=== PATIENT | female | born 1995 | race Caucasian/White ===

== ENCOUNTER 2016-05-19 11:13 | Emergency (ER) | payer OTHER ==
[2016-05-19 11:23] VITALS: RESP 18
[2016-05-19] MEDS ORDERED: SODIUM CHLORIDE 0.9% 1,000 ML IV STA ×2 (11:34)
[2016-05-19] MEDS ORDERED: METOCLOPRAMIDE 5 MG/ML 2 ML VIAL IVP STA (11:34)
--- NOTE | 2016-05-19 11:37 | ED ---
General Adult HPI - General Chief complaint: Nausea/Vomiting/Diarrhea Stated complaint: 24 WEEKS , FLU LIKE SYMPTOMS, VOMITING Time Seen by Provider: 05/19/16 11:31 Source: patient, RN notes reviewed Mode of arrival: ambulatory Limitations: no limitations - History of Present Illness Initial comments: Patient 20-year-old female who is approximately 24 weeks , with chief complaint of nausea vomiting that began around 3 AM. Patient admits to several episodes of vomiting throughout the night. States she did not get much sleep. Denies any signs of blood in the emesis. Denies any abdominal pain. Denies any vaginal bleeding or discharge. Denies any other complaints associated symptoms. Patient denies any recent fever, chills, shortness of breath, chest pain, back pain, numbness or tingling, dysuria or hematuria, constipation or diarrhea, headaches or visual changes, or any other complaints. - Related Data Home Medications Medication Instructions Recorded Confirmed Acetaminophen Tab [Tylenol Tab] 500 - 1,000 mg PO BID PRN 03/14/16 05/19/16 Albuterol Inhaler [Ventolin Hfa 1 - 2 puff INHALATION RT-Q6H PRN 03/14/16 Inhaler] Pnv with Ca,No.72/Iron/FA 1 tab PO DAILY 03/14/16 05/19/16 [ Plus Tablet] Previous Rx's Medication Instructions Recorded Metoclopramide HCl [Reglan] 10 mg PO Q6HR PRN #5 day 05/19/16 Allergies Allergy/AdvReac Type Severity Reaction Status Date / Time No Known Allergies Allergy Verified 05/19/16 12:01 Review of Systems ROS Statement: Those systems with pertinent positive or pertinent negative responses have been documented in the HPI. ROS Other: All systems not noted in ROS Statement are negative. Past Medical History Past Medical History: Asthma History of Any Multi-Drug Resistant Organisms: None Reported Past Surgical History: No Surgical Hx Reported Past Psychological History: No Psychological Hx Reported Smoking Status: Current every day smoker Past Alcohol Use History: None Reported Past Drug Use History: None Reported General Exam - General Exam Comments Initial Comments: General: The patient is awake and alert, in no distress, and does not appear acutely ill. Eye: Pupils are equal, round and reactive to light, extra-ocular movements are intact. No nystagmus. There is normal conjunctiva bilaterally. No signs of icterus. Ears, nose, mouth and throat: There are moist mucous membranes and no oral lesions. Neck: The neck is supple, there is no tenderness or JVD. Cardiovascular: There is a regular rate and rhythm. No murmur, rub or gallop is appreciated. Respiratory: Lungs are clear to auscultation, respirations are non-labored, breath sounds are equal. No wheezes, stridor, rales, or rhonchi. Gastrointestinal: Soft, non-distended, non-tender abdomen without masses or organomegaly noted. There is no rebound or guarding present. No CVA tenderness. Bowel sounds are unremarkable. Musculoskeletal: Normal ROM, no tenderness. Strength 5/5. Sensation intact. Pulses equal bilaterally 2+. Neurological: A&O x 3. CN II-XII intact, There are no obvious motor or sensory deficits. Coordination appears grossly intact. Speech is normal. Skin: Skin is warm and dry and no rashes or lesions are noted. Psychiatric: Cooperative, appropriate mood & affect, normal judgment. Limitations: no limitations Course Vital Signs 05/19/16 11:19 Temperature 97.2 F L Pulse Rate 89 Respiratory 18 Rate Blood Pressure 116/61 O2 Sat by Pulse 97 Oximetry Medical Decision Making - Medical Decision Making Patient reexamined at this time states she feels much better here in the emergency room. She denies any complaints currently at this time. Patient been given nausea medication of Reglan along with IV fluids. Patient states her leg be discharged home. Nursing staff is unable to get blood at the same time IV placement. Patient did have labs drawn by lab which are currently pending. She states she does not want to wait for the results. States very tired negative sleep last night would like to be discharged home at this time. Patient will be discharged with a prescription for nausea medication of Reglan. Advised to follow-up with her SUBEDITOR. Advised return if any symptoms increase or worsen or for any other concerns. Disposition Clinical Impression: Hyperemesis gravidarum Disposition: HOME SELF-CARE Condition: Good Instructions: Hyperemesis Gravidarum (ED) Additional Instructions: Please use medication as discussed. Please follow-up with family doctor/SUBEDITOR in the next 2 days of symptoms have not improved. Please return to emergency room if the symptoms increase or worsen or for any other concerns. Prescriptions: Metoclopramide HCl [Reglan] 10 mg PO Q6HR PRN #5 day PRN Reason: Nausea Time of Disposition: 13:04
[2016-05-19 13:02] LABS: Basophils % (A) 0 %; CH 30.5; CHCM 34.1; Eosinophils % (A) 0 %; HCT 35.9 % (34.0-46.0); HGB 12.1 gm/dL (11.4-16.0); Luc # (Auto) 0.09; Luc % (Auto) 1; Lymphocytes # (A) 0.3 k/uL (1.0-4.8); Lymphocytes % (A) 3 %; MCH 30.3 pg (25.0-35.0); MCHC 33.6 g/dL (31.0-37.0); MCV 90.1 fL (80.0-100.0); Mean Platelet Volume 7.2; Monocytes # (A) 0.3 k/uL (0-1.0); Monocytes % (A) 3 %; Neutrophils # (A) 10.8 k/uL (1.3-7.7); Neutrophils % (A) 93 %; RBC 3.99 m/uL (3.80-5.40); RDW 14.2 % (11.5-15.5); WBC 11.5 k/uL (3.8-10.6); WBC (Perox) 12.47
[2016-05-19 13:20] VITALS: BP 154/67; PULSE 67; TEMP 98.9
[2016-05-19 13:25] LABS: Appearance,Urine Turbid (Clear); Bilirubin,Urine Negative (Negative); Glucose,Urine (UA) Negative (Negative); Ketones,Urine 2+ (Negative); Leukocyte Esterase,Urine Small (Negative); Mucus,Urine Occasional /hpf; Nitrite,Urine Negative (Negative); PH, Urine 6.5 (5.0-8.0); Particle Count 40232; Protein,Urine 2+ (Negative); RBC,Urine 4 /hpf (0-5); Specific Gravity,Urine 1.026 (1.001-1.035); Squamous Epithelial Cell,Urine 69 /hpf (0-4); UA Billing (MACRO vs. MICRO) MICRO; WBC,Urine 1 /hpf (0-5)
[2016-05-19 13:26] LABS: ALT 32 U/L (9-52); AST 23 U/L (14-36); Alkaline Phosphatase 71 U/L (38-126); Anion Gap 12 mmol/L; Blood Urea Nitrogen 12 mg/dL (7-17); Calcium 9.1 mg/dL (8.4-10.2); Carbon Dioxide 21 mmol/L (22-30); Chloride 107 mmol/L (98-107); Glucose 117 mg/dL (74-99); Non-African American GFR(MDRD) >60 (>60 ml/min/1.73 sqM); Potassium 4.1 mmol/L (3.5-5.1); Sodium 140 mmol/L (137-145); Total Bilirubin 0.7 mg/dL (0.2-1.3); Total Protein 6.9 g/dL (6.3-8.2)
== END 2016-05-19 13:20 | disposition home or self-care (01) ==
LOC: EC 11:13
DX: O21.0 Mild hyperemesis gravidarum (principal); O99.332 Smoking (tobacco) complicating pregnancy, second trimester; Z3A.24 24 weeks gestation of pregnancy; F17.200 Nicotine dependence, unspecified, uncomplicated
CPT/HCPCS: 99284; 96374; 96361; 36415; 80053; 85025; 81001; 87086; J2765

== ENCOUNTER 2016-05-25 01:42 | Outpatient (CLI) | payer OTHER | END 2016-05-25 02:10 | disposition home or self-care (01) | LOC: FBPOP 01:42 | PROVIDERS: ATTEND Obstetrics & Gynecology | DX: O99.89 Other specified diseases and conditions complicating pregnancy, childbirth and the puerperium (principal); R20.8 Other disturbances of skin sensation; O99.333 Smoking (tobacco) complicating pregnancy, third trimester; Z3A.23 23 weeks gestation of pregnancy | CPT/HCPCS: 99213 ==

== ENCOUNTER 2016-05-25 02:17 | Emergency (ER) | payer OTHER ==
[2016-05-25 02:30] VITALS: BP 125/71; PULSE 82; RESP 20; TEMP 98.1
--- NOTE | 2016-05-25 02:45 | ED ---
Back Pain HPI - General Chief Complaint: Back Pain/Injury Stated Complaint: numbness,back pain Time Seen by Provider: 05/25/16 02:27 Source: patient, RN notes reviewed Mode of arrival: ambulatory Limitations: no limitations - History of Present Illness Initial Comments: 20-year-old female presents emergency Department with chief complaint of back pain. Patient states that she's had back pain throughout her whole but states that she had some numbness today. Patient was concerned and she came the emergency department. Patient was seen by mother-baby in the was cleared for any abnormalities including contractions. Patient had normal testing the stairs. Patient states that she was just concerned as she had been numbness and tingling which resolved it only lasted 10-15 minutes. She states it radiated down her leg. Patient denies any bowel bladder incontinence or retention. Denies any saddle anesthesias. Denies any dysuria. Patient states she has no abdominal pain, cramping, vaginal bleeding or vaginal discharge. - Related Data Home Medications Medication Instructions Recorded Confirmed Pnv with Ca,No.72/Iron/FA 1 tab PO DAILY 03/14/16 05/25/16 [ Plus Tablet] Allergies Allergy/AdvReac Type Severity Reaction Status Date / Time No Known Allergies Allergy Verified 05/25/16 02:30 Review of Systems ROS Statement: Those systems with pertinent positive or pertinent negative responses have been documented in the HPI. ROS Other: All systems not noted in ROS Statement are negative. Past Medical History Past Medical History: Asthma History of Any Multi-Drug Resistant Organisms: None Reported Past Surgical History: No Surgical Hx Reported Past Psychological History: No Psychological Hx Reported Smoking Status: Current every day smoker Past Alcohol Use History: None Reported Past Drug Use History: None Reported General Exam Limitations: no limitations General appearance: alert, in no apparent distress Head exam: Present: atraumatic, normocephalic, normal inspection Respiratory exam: Present: normal lung sounds bilaterally. Absent: respiratory distress, wheezes, rales, rhonchi, stridor Cardiovascular Exam: Present: regular rate, normal rhythm, normal heart sounds. Absent: systolic murmur, diastolic murmur, rubs, gallop, clicks GI/Abdominal exam: Present: soft, normal bowel sounds. Absent: distended, tenderness, guarding, rebound, rigid Extremities exam: Present: normal inspection, full ROM, normal capillary refill. Absent: tenderness, pedal edema, joint swelling, calf tenderness Back exam: Present: full ROM, other (Mild discomfort with left straight leg raise). Absent: tenderness, paraspinal tenderness, vertebral tenderness Neurological exam: Present: alert, oriented X3, CN II-XII intact, reflexes normal. Absent: motor sensory deficit Skin exam: Present: warm, dry, intact, normal color. Absent: rash Course Vital Signs 05/25/16 02:27 Temperature 98.1 F Pulse Rate 82 Respiratory 20 Rate Blood Pressure 125/71 O2 Sat by Pulse 97 Oximetry Medical Decision Making - Medical Decision Making 20-year-old male present emergency department for left back pain, leg numbness. Patient appears to have lumbar radiculopathy. She has no deficits and no red flag symptoms. Patient be discharged and follow-up with WEB CONTENT DEVELOPER. Return parameters discussed. Disposition Clinical Impression: Lumbar radiculopathy Disposition: HOME SELF-CARE Condition: Stable Instructions: Lumbar Radiculopathy (ED) Additional Instructions: Please return to the Emergency Department if symptoms worsen or any other concerns. Referrals: Екатерина Otero MD [Primary Care Provider] - 1-2 days Time of Disposition: 02:45
== END 2016-05-25 02:51 | disposition home or self-care (01) ==
LOC: EC 02:17
DX: O99.89 Other specified diseases and conditions complicating pregnancy, childbirth and the puerperium (principal); M54.16 Radiculopathy, lumbar region; O99.332 Smoking (tobacco) complicating pregnancy, second trimester; F17.200 Nicotine dependence, unspecified, uncomplicated; Z3A.25 25 weeks gestation of pregnancy; Z79.899 Other long term (current) drug therapy
CPT/HCPCS: 99283

== ENCOUNTER → 2016-07-02 | Outpatient (CLI) | payer OTHER ==
[2016-07-02 09:31] LABS: CH 30.8; CHCM 33.9; HCT 35.7 % (34.0-46.0); HDW 2.75; HGB 11.9 gm/dL (11.4-16.0); MCH 30.5 pg (25.0-35.0); MCHC 33.4 g/dL (31.0-37.0); MCV 91.4 fL (80.0-100.0); Mean Platelet Volume 7.6; RBC 3.91 m/uL (3.80-5.40); RDW 13.6 % (11.5-15.5)
== END | disposition home or self-care (01) ==
LOC: LABWHC1 08:12
PROVIDERS: ATTEND Obstetrics & Gynecology
DX: Z34.82 Encounter for supervision of other normal pregnancy, second trimester (principal); Z3A.00 Weeks of gestation of pregnancy not specified
CPT/HCPCS: 36415; 82950; 85027

== ENCOUNTER → 2016-07-06 | Outpatient (CLI) | payer OTHER ==
--- NOTE | 2016-07-06 13:30 | US ---
EXAMINATION TYPE: US OB anatomy transabd DATE OF EXAM: 07/06/2016 12:51 PM COMPARISON: NONE HISTORY: 20-year-old female order states for follow up on abnormal seen in office, no report attached to order. Patient states for heart and arms TECHNIQUE: Transabdominal (TA) scanning. FINDINGS: EXAM MEASUREMENTS: GESTATIONAL AGE / DATING Physician Established: (29 weeks/0 days) EDC: 09/21/2016 Dates by LMP: uncertain LMP Dates by First Scan: no previous here Dates by Current Scan for: (29 weeks/0 days) EDC: 09/21/2016 SURVEY IUP: Single PLACENTA: Anterior PREVIA: No previa TALITA: 12.8 cm Normal CERVICAL LENGTH (transabdominal: norm > 3.0cm): 3.2 cm BIOMETRY PRESENTATION: Vertex LIE: Longitudinal BPD: 7.5 cm 30 weeks / 1 days HC: 27.0 cm 29 weeks / 3 days AC: 25.7 cm 29 weeks / 6 days FL: 5.5 cm 28 weeks / 6 days ESTIMATED WEIGHT IN GRAMS: 1403 grams ESTIMATED WEIGHT IN LBS/OZS: 3 lbs. 1 oz. WEIGHT PERCENTAGE BASED ON ESTABLISHED DATE: 55 % HC/AC: 1.05 FL/AC: 21 HEART RATE: 185 bpm upper limits (pt states drinks Mountain Dew daily) RHYTHM: Normal ANATOMY SEEN (within normal limits): Cisterna Magna (< 1.1 cm) 0.5 cm Cerebellum (varies with age) 3.4 cm Midline Falx Four Chamber Heart Stomach Situs Nose / Lips Diaphragm Kidneys (bilateral) Arms (bilateral) Legs (bilateral) ANATOMY NOT SEEN: due to advanced age and lie Lateral Vent Choroid Plexus (bilateral) Cavus Septi Pellucidi Outflow tracts: LVOT/RVOT Bladder Longitudinal Spine Transverse Spine Cord Insert Three Vessel Cord TECHNOLOGIST IMPRESSION: viable iup, growth congruent with established dates IMPRESSION: 1. Single live intrauterine with established gestational age of 29 weeks 0 days. Current ul trasound biometry is exactly concordant placing the child at the 55th percentile for weight. 2. Mild tachycardia. Follow-up as clinically indicated. The patient reported to the golf range attendant that she drinks Mountain Dew every day. 3. The four-chamber heart and bilateral arms appear normal. A number of other structures including th e cardiac outflow tracts were suboptimally visualized for adequate assessment due to relatively advan bob age and lie. See above.
== END | disposition home or self-care (01) ==
LOC: RADUSWWP 12:24
PROVIDERS: ATTEND Obstetrics & Gynecology
DX: O76 Abnormality in fetal heart rate and rhythm complicating labor and delivery (principal); Z3A.29 29 weeks gestation of pregnancy
CPT/HCPCS: 76811

== ENCOUNTER → 2016-07-08 | Outpatient (CLI) | payer OTHER ==
[2016-07-08 12:40] LABS: Glucose 3 Hour, Gest 115 mg/dL
== END | disposition home or self-care (01) ==
LOC: LABWHC1 08:14
PROVIDERS: ATTEND Obstetrics & Gynecology
DX: O24.419 Gestational diabetes mellitus in pregnancy, unspecified control (principal); Z3A.00 Weeks of gestation of pregnancy not specified
CPT/HCPCS: 36415; 82951; 82952

== ENCOUNTER → 2016-07-29 | Outpatient (CLI) | payer OTHER ==
[2016-07-29 12:34] LABS: Hemoglobin A1C 5.4 % (4.2-6.1)
== END ==
LOC: LABWHC1 11:38
PROVIDERS: ATTEND Obstetrics & Gynecology
DX: O24.419 Gestational diabetes mellitus in pregnancy, unspecified control (principal)
CPT/HCPCS: 36415; 83036

== ENCOUNTER 2016-08-15 21:29 | Observation (INO) | payer OTHER ==
[2016-08-15] MEDS ORDERED: BETAMET ACET-BETAMETH SOD PHOS 6 MG/ML VIAL IM SCH (23:30)
[2016-08-15] MEDS ORDERED: LACTATED RINGERS 1,000 ML IV SCH (23:45)
[2016-08-15] MEDS ORDERED: LACTATED RINGERS 500 ML IV SCH (23:45)
[2016-08-16 00:44] VITALS: BMI 48.3
[2016-08-16 01:25] LABS: Glucose,Whole Blood 92 mg/dL (75-99)
[2016-08-16 03:59] VITALS: RESP 16; TEMP 96.2
[2016-08-16 08:01] LABS: Glucose,Whole Blood 130 mg/dL (75-99)
[2016-08-16 11:22] VITALS: BP 118/63; PULSE 84
[2016-08-16 11:22] LABS: Glucose,Whole Blood 139 mg/dL (75-99)
--- NOTE | 2016-08-16 12:02 | P.HPOB ---
History of Present Illness H&P Date: 08/16/16 Chief Complaint: labor Family is a 20-year-old at 34 weeks gestation who began having vaginal pain yesterday afternoon. It worsened and she did come to labor and delivery was noted to be kar. All her cervix was closely did do feel firm neck which did return as positive. Due to this dose of Celestone provided and a second dose will be provided next 24-48 hours. She is a gestational diabetic but she is diet controlled. No other gross problems with the and other than the pain which actually sounded more like baby movement she was not having any problems or complaints. Vital signs are stable and afebrile. Heart regular, lungs clear, extremities without pain. Abdomen soft gravid uterus is noted. heart tones in the 140s and reactive. Assessment intrauterine 34 weeks with labor-like symptoms. Plan Celestone and observation Past Medical History Past Medical History: Asthma, Diabetes Mellitus History of Any Multi-Drug Resistant Organisms: None Reported Past Surgical History: No Surgical Hx Reported Past Psychological History: No Psychological Hx Reported Smoking Status: Current every day smoker Past Alcohol Use History: None Reported Past Drug Use History: None Reported Medications and Allergies Home Medications Medication Instructions Recorded Confirmed Type Pnv with Ca,No.72/Iron/FA 1 tab PO DAILY 03/14/16 07/07/16 History [ Plus Tablet] Allergies Allergy/AdvReac Type Severity Reaction Status Date / Time No Known Allergies Allergy Verified 07/07/16 01:42 Exam Osteopathic Statement: *. No significant issues noted on an osteopathic structural exam other than those noted in the History and Physical/Consult. - Vital Signs Vital signs: Vital Signs Temp Pulse Resp BP Pulse Ox 08/16/16 11:21 84 118/63 98 08/16/16 03:58 96.2 F L 83 16 100/57 08/16/16 01:45 96.4 F L 93 18 123/63 08/16/16 00:00 96.6 F L 70 18 102/56 Intake and Output 08/15/16 08/16/16 08/16/16 22:59 06:59 14:59 Other: Weight 116.12 kg 116.12 kg - OBG Physical Exam Abdomen: bowel sounds normal, no diffuse tenderness, no bruit present, no guarding noted, no hepatomegaly, no splenomegaly, no mass Results Abnormal Lab Results - Last 24 Hours (Table) 08/16/16 08/16/16 Range/Units 07:58 11:18 POC Glucose (mg/dL) 130 H 139 H (75-99) mg/dL
--- NOTE | 2016-08-16 12:03 | P.DS ---
Providers Date of admission: 08/15/16 23:23 Expected date of discharge: 08/16/16 Attending physician: Tye Keller Primary care physician: Tye Keller Hospital Course: Karime is doing very well this morning. She is rare to contractions. Pain is actually better. However will plan to do modified bedrest next few days and reevaluate. She is to see me tomorrow. As it would be until midnight tonight that she would get her Celestone and she does not show any overt signs of labor this morning we'll plan to discharge her home today with expectation to have her come back tomorrow for her second dose of Celestone. All the questions are answered for the patient and she is stable for discharge at this time. No other gross findings are noted. Again she'll follow me tomorrow. No tocolytics were provided during this hospitalization. Patient Condition at Discharge: Good Plan - Discharge Summary Discharge Medication List Pnv with Ca,No.72/Iron/FA [ Plus Tablet] 1 tab PO DAILY 03/14/16 [ History] Follow up Appointment(s)/Referral(s): Tye Keller DO [Primary Care Provider] - 08/17/16 Activity/Diet/Wound Care/Special Instructions: Discharge home on modified bedrest. She is aware to return with any contractions or pain. She will also see me tomorrow and then get her second dose of Celestone tomorrow Discharge Disposition: HOME SELF-CARE
== END 2016-08-16 12:46 | disposition home or self-care (01) ==
LOC: FBPOP 21:29 → 4FBP 23:23
PROVIDERS: ADMIT Obstetrics & Gynecology; ATTEND Obstetrics & Gynecology
DX: O26.893 Other specified pregnancy related conditions, third trimester (principal); Z3A.34 34 weeks gestation of pregnancy; O24.419 Gestational diabetes mellitus in pregnancy, unspecified control; O99.513 Diseases of the respiratory system complicating pregnancy, third trimester; J45.909 Unspecified asthma, uncomplicated; O99.333 Smoking (tobacco) complicating pregnancy, third trimester; F17.200 Nicotine dependence, unspecified, uncomplicated; Z79.899 Other long term (current) drug therapy
CPT/HCPCS: 99213; 82731; G0378 ×2; J0702; 96372

== ENCOUNTER 2016-08-30 20:40 | Emergency (ER) | payer OTHER ==
--- NOTE | 2016-08-30 21:40 | ED ---
General Adult HPI - General Chief complaint: Headache Stated complaint: Extremity numbness Time Seen by Provider: 08/30/16 21:00 Source: patient, RN notes reviewed Mode of arrival: ambulatory Limitations: no limitations - History of Present Illness Initial comments: This is a 20-year-old female comes in 37 weeks and is complaining that earlier in the day she lost function of her left hand and had numbness of her left foot and leg and numbness of the right arm as well. Patient states it only lasted for about 10 minutes and then it subsided. Patient states during that time she felt weird and cannot describe it any further. Patient states she has a mild headache currently but no numbness or weakness anywhere. 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 Patient denies any chest pain palpitations difficulty breathing or shortness of breath per patient denies any recent injury or trauma. Patient denies any neck pain. Patient denies any abdominal pain. Patient states this is the third time she's had numbness on her left side since she's been . Patient states she has not yet had a CAT scan of her head. Patient states today was not just know it was also weakness of the left hand. - Related Data Home Medications Medication Instructions Recorded Confirmed Pnv with Ca,No.72/Iron/FA 1 tab PO DAILY 03/14/16 08/30/16 [ Plus Tablet] Acetaminophen [Tylenol] 650 mg PO Q6H PRN 08/30/16 08/30/16 Albuterol Inhaler [Ventolin Hfa 2 puff INHALATION RT-Q6H PRN 08/30/16 08/30/16 Inhaler] glyBURIDE [Glyburide] 1.25 mg PO BID 08/30/16 08/30/16 Allergies Allergy/AdvReac Type Severity Reaction Status Date / Time No Known Allergies Allergy Verified 08/30/16 21:14 Review of Systems ROS Statement: Those systems with pertinent positive or pertinent negative responses have been documented in the HPI. ROS Other: All systems not noted in ROS Statement are negative. Past Medical History Past Medical History: Asthma, Diabetes Mellitus History of Any Multi-Drug Resistant Organisms: None Reported Past Surgical History: No Surgical Hx Reported Past Psychological History: No Psychological Hx Reported Smoking Status: Current every day smoker Past Alcohol Use History: None Reported Past Drug Use History: None Reported General Exam - General Exam Comments Initial Comments: GENERAL: Patient is well-developed and well-nourished. Patient is nontoxic and well- hydrated and is in no acute distress. ENT: Neck is soft and supple. No significant lymphadenopathy is noted. Oropharynx is clear. Moist mucous membranes. Neck has full range of motion without eliciting any pain. EYES: The sclera were anicteric and conjunctiva were pink and moist. Extraocular movements were intact and pupils were equal round and reactive to light. Eyelids were unremarkable. PULMONARY: Unlabored respirations. Good breath sounds bilaterally. No audible rales rhonchi or wheezing was noted. CARDIOVASCULAR: There is a regular rate and rhythm without any murmurs gallops or rubs. ABDOMEN: Soft and nontender with normal bowel sounds. No palpable organomegaly was noted. There is no palpable pulsatile mass. SKIN: Skin is clear with no lesions or rashes and otherwise unremarkable. NEUROLOGIC: Patient is alert and oriented x3. Cranial nerves II through XII are grossly intact. Motor and sensory are also intact. Normal speech, volume and content. Symmetrical smile. MUSCULOSKELETAL: Normal extremities with adequate strength and full range of motion. No lower extremity swelling or edema. No calf tenderness. LYMPHATICS: No significant lymphadenopathy is noted PSYCHIATRIC: Normal psychiatric evaluation. Limitations: no limitations Course Vital Signs 08/30/16 20:44 Temperature 98.3 F Pulse Rate 97 Respiratory 20 Rate Blood Pressure 134/84 O2 Sat by Pulse 95 Oximetry Medical Decision Making - Medical Decision Making EKG shows normal sinus rhythm at 90 bpm KS interval is 174 QRS is 82 QT interval 338 QTC is 413. Patient's EKG shows no ST segment elevation or depression or T wave rales noted. Patient's CT of the brain shows no acute abnormality. I spoke with Dr. Hines and he agreed to admit the patient admitted the patient remaining orders consult for neurology. - Lab Data Result diagrams: 08/30/16 21:46 08/30/16 21:46 Lab Results 08/30/16 08/30/16 08/30/16 Range/Units 21:46 21:46 21:46 WBC 14.5 H (3.8-10.6) k/uL RBC 4.22 (3.80-5.40) m/uL Hgb 12.7 (11.4-16.0) gm/dL Hct 38.0 (34.0-46.0) % MCV 89.9 (80.0-100.0) fL MCH 30.2 (25.0-35.0) pg MCHC 33.6 (31.0-37.0) g/dL RDW 13.8 (11.5-15.5) % Plt Count 275 (150-450) k/uL Neutrophils % 74 % Lymphocytes % 19 % Monocytes % 4 % Eosinophils % 0 % Basophils % 0 % Neutrophils # 10.8 H (1.3-7.7) k/uL Lymphocytes # 2.7 (1.0-4.8) k/uL Monocytes # 0.6 (0-1.0) k/uL Eosinophils # 0.1 (0-0.7) k/uL Basophils # 0.0 (0-0.2) k/uL PT (9.0-12.0) sec INR (<1.1) APTT (22.0-30.0) sec Sodium 135 L (137-145) mmol/L Potassium 4.9 (3.5-5.1) mmol/L Chloride 108 H (98-107) mmol/L Carbon Dioxide 17 L (22-30) mmol/L Anion Gap 10 mmol/L BUN 14 (7-17) mg/dL Creatinine 0.80 (0.52-1.04) mg/dL Est GFR (MDRD) Af Amer >60 (>60 ml/min/1.73 sqM) Est GFR (MDRD) Non-Af >60 (>60 ml/min/1.73 sqM) Glucose 68 L (74-99) mg/dL Calcium 9.9 (8.4-10.2) mg/dL Magnesium 1.8 (1.6-2.3) mg/dL Total Bilirubin 0.6 (0.2-1.3) mg/dL AST 39 H (14-36) U/L ALT 24 (9-52) U/L Alkaline Phosphatase 152 H (38-126) U/L Total Creatine Kinase 311 H (30-135) U/L CK-MB (CK-2) 4.8 H* (0.0-2.4) ng/mL CK-MB (CK-2) Rel Index 1.5 Troponin I <0.012 (0.000-0.034) ng/mL Total Protein 7.6 (6.3-8.2) g/dL Albumin 3.7 (3.5-5.0) g/dL 08/30/16 Range/Units 21:46 WBC (3.8-10.6) k/uL RBC (3.80-5.40) m/uL Hgb (11.4-16.0) gm/dL Hct (34.0-46.0) % MCV (80.0-100.0) fL MCH (25.0-35.0) pg MCHC (31.0-37.0) g/dL RDW (11.5-15.5) % Plt Count (150-450) k/uL Neutrophils % % Lymphocytes % % Monocytes % % Eosinophils % % Basophils % % Neutrophils # (1.3-7.7) k/uL Lymphocytes # (1.0-4.8) k/uL Monocytes # (0-1.0) k/uL Eosinophils # (0-0.7) k/uL Basophils # (0-0.2) k/uL PT 9.3 (9.0-12.0) sec INR 0.9 (<1.1) APTT 20.1 L (22.0-30.0) sec Sodium (137-145) mmol/L Potassium (3.5-5.1) mmol/L Chloride (98-107) mmol/L Carbon Dioxide (22-30) mmol/L Anion Gap mmol/L BUN (7-17) mg/dL Creatinine (0.52-1.04) mg/dL Est GFR (MDRD) Af Amer (>60 ml/min/1.73 sqM) Est GFR (MDRD) Non-Af (>60 ml/min/1.73 sqM) Glucose (74-99) mg/dL Calcium (8.4-10.2) mg/dL Magnesium (1.6-2.3) mg/dL Total Bilirubin (0.2-1.3) mg/dL AST (14-36) U/L ALT (9-52) U/L Alkaline Phosphatase (38-126) U/L Total Creatine Kinase (30-135) U/L CK-MB (CK-2) (0.0-2.4) ng/mL CK-MB (CK-2) Rel Index Troponin I (0.000-0.034) ng/mL Total Protein (6.3-8.2) g/dL Albumin (3.5-5.0) g/dL Disposition Clinical Impression: TIA (transient ischemic attack) Disposition: ADMITTED IP TO THIS HOSP Time of Disposition: 23:59
[2016-08-30 22:15] LABS: Basophils % (A) 0 %; CH 30.1; CHCM 33.6; Eosinophils # (A) 0.1 k/uL (0-0.7); Eosinophils % (A) 0 %; HDW 2.77; HGB 12.7 gm/dL (11.4-16.0); Luc # (Auto) 0.24; Luc % (Auto) 2; Lymphocytes # (A) 2.7 k/uL (1.0-4.8); Lymphocytes % (A) 19 %; MCH 30.2 pg (25.0-35.0); MCHC 33.6 g/dL (31.0-37.0); MCV 89.9 fL (80.0-100.0); Mean Platelet Volume 7.4; Monocytes # (A) 0.6 k/uL (0-1.0); Monocytes % (A) 4 %; Neutrophils # (A) 10.8 k/uL (1.3-7.7); Neutrophils % (A) 74 %; RBC 4.22 m/uL (3.80-5.40); RDW 13.8 % (11.5-15.5); WBC 14.5 k/uL (3.8-10.6); WBC (Perox) 14.66
[2016-08-30 22:30] LABS: ALT 24 U/L (9-52); AST 39 U/L (14-36); Alkaline Phosphatase 152 U/L (38-126); Anion Gap 10 mmol/L; Blood Urea Nitrogen 14 mg/dL (7-17); Calcium 9.9 mg/dL (8.4-10.2); Carbon Dioxide 17 mmol/L (22-30); Chloride 108 mmol/L (98-107); Glucose 68 mg/dL (74-99); Magnesium 1.8 mg/dL (1.6-2.3); Non-African American GFR(MDRD) >60 (>60 ml/min/1.73 sqM); Sodium 135 mmol/L (137-145); Total Bilirubin 0.6 mg/dL (0.2-1.3); Total Protein 7.6 g/dL (6.3-8.2)
[2016-08-30 22:33] LABS: Potassium 4.9 mmol/L (3.5-5.1)
[2016-08-30 22:39] LABS: Creatine Kinase 311 U/L (30-135)
--- NOTE | 2016-08-30 22:40 | CT ---
EXAM: CT Head Without Intravenous Contrast. CLINICAL HISTORY: Reason: Pain TECHNIQUE: Axial computed tomography images of the head/brain without intravenous contrast. CTDI is 60.3 mGy and DLP is 929 mGy-cm This CT exam was performed using one or more of the following dose reduction techniques: automated exposure control, adjustment of the mA and/or kV according to patient size, and/or use of iterative reconstruction technique. COMPARISON: 06/05/15 FINDINGS: Brain: Unremarkable. No hemorrhage. No significant white matter disease. No edema. Ventricles: Unremarkable. No ventriculomegaly. Bones: No acute fracture. Sinuses: Unremarkable as visualized. No acute sinusitis. Mastoid air cells: Unremarkable as visualized. No mastoid effusion. IMPRESSION: Normal head/brain.
[2016-08-30 23:07] LABS: INR 0.9 (<1.1); Partial Thromboplastin Time 20.1 sec (22.0-30.0); Prothrombin Time 9.3 sec (9.0-12.0)
[2016-08-30 23:12] LABS: Troponin I <0.012 ng/mL (0.000-0.034)
[2016-08-30 23:15] LABS: Creatine Kinase MB 4.8 ng/mL (0.0-2.4)
[2016-08-30] MEDS ORDERED: ACETAMINOPHEN TAB 500 MG TAB PO STA (23:24)
[2016-08-30] MEDS ORDERED: IBUPROFEN 600 MG TAB PO STA (23:24)
[2016-08-30] MEDS ORDERED: LEVOFLOXACIN 750MG-D5W PMX 750 MG in DEXTROSE/WATER 1 150ML.BAG IVPB STA (23:25)
[2016-08-30] MEDS ORDERED: LEVOFLOXACIN 750MG-D5W PMX 750 MG in DEXTROSE/WATER 1 150ML.BAG IVPB SCH (23:30)
[2016-08-31] VITALS: BP 123/59; PULSE 81; RESP 18; TEMP 97.8
== END 2016-08-31 00:56 | disposition left against medical advice (07) ==
LOC: EC 20:40 → UNDOADMIN 23:59 → 6SEL 23:59 → EC 08-31 00:56
DX: O99.353 Diseases of the nervous system complicating pregnancy, third trimester (principal); G45.9 Transient cerebral ischemic attack, unspecified; O24.913 Unspecified diabetes mellitus in pregnancy, third trimester; O99.333 Smoking (tobacco) complicating pregnancy, third trimester; F17.200 Nicotine dependence, unspecified, uncomplicated; Z79.84 Long term (current) use of oral hypoglycemic drugs; Z3A.37 37 weeks gestation of pregnancy; Z53.20 Procedure and treatment not carried out because of patient's decision for unspecified reasons; Z79.899 Other long term (current) drug therapy
CPT/HCPCS: 36415; 70450; 80053; 82550; 82553; 83605; 83735; 84484; 85025; 85610; 85730; 93005; 99284

== ENCOUNTER 2016-08-31 11:55 | Observation (INO) | payer OTHER ==
[2016-08-31 12:37] VITALS: BP 114/64; PULSE 94; RESP 16; TEMP 98.4; BMI 49.1
[2016-08-31 13:15] LABS: Glucose,Whole Blood 110 mg/dL (75-99)
[2016-08-31 21:25] LABS: Glucose,Whole Blood 137 mg/dL (75-99)
[2016-09-01 09:57] LABS: Glucose,Whole Blood 120 mg/dL (75-99)
--- NOTE | 2016-09-01 10:23 | ECHOF ---
Referral Reason:Recurrent TIA. MEASUREMENTS -------- HEIGHT: 154.9 cm WEIGHT: 117.9 kg BP: 114/60 RVIDd: 3.0 cm (< 3.3) IVSd: 0.9 cm (0.6 - 1.1) LVIDd: 4.5 cm (3.9 - 5.3) LVPWd: 0.9 cm (0.6 - 1.1) IVSs: 1.4 cm LVIDs: 3.3 cm LVPWs: 1.5 cm LA Diam: 3.6 cm (2.7 - 3.8) Ao Diam: 2.9 cm (2.0 - 3.7) AV Cusp: 1.9 cm (1.5 - 2.6) MV EXCURSION: 16.399 mm (> 18.000) MV EF SLOPE: 105 mm/s (70 - 150) EPSS: 0.9 cm MV E Tomás: 0.87 m/s MV DecT: 338 ms MV A Tomás: 0.56 m/s MV E/A Ratio: 1.54 RAP: 5.00 mmHg RVSP: 28.15 mmHg FINDINGS -------- Sinus rhythm. This was a technically good study. The left ventricular size is normal. Left ventricular wall thickness is normal. Overall left ventricular systolic function is normal with, an EF between 60 - 65 %. The right ventricle is normal in size. The left atrial size is normal. The right atrium is normal in size. The aortic valve is trileaflet and appears structurally normal. The mitral valve is normal. Mild tricuspid regurgitation present. Right ventricular systolic pressure is normal at < 35 mmHg. Trace/mild (physiologic) pulmonic regurgitation. The aortic root size is normal. There is no pericardial effusion. CONCLUSIONS -------- 1. Sinus rhythm. 2. The mitral valve is normal. 3. Mild tricuspid regurgitation present. 4. Right ventricular systolic pressure is normal at < 35 mmHg. 5. Trace/mild (physiologic) pulmonic regurgitation. 6. The aortic root size is normal. 7. There is no pericardial effusion. 8. This was a technically good study. 9. The left ventricular size is normal. 10. Left ventricular wall thickness is normal. 11. Overall left ventricular systolic function is normal with, an EF between 60 - 65 %. 12. The right ventricle is normal in size. 13. The left atrial size is normal. 14. The right atrium is normal in size. 15. The aortic valve is trileaflet and appears structurally normal. TECHNICAL SERVICES REPRESENTATIVE: Criss Lin RDCS
--- NOTE | 2016-09-01 10:37 | P.HPOB ---
History of Present Illness H&P Date: 08/31/16 Chief Complaint: Intrauterine at 37 weeks: TIA symptoms Karime is a 20-year-old female at 37 weeks 5 days gestation who called the on- call physician last night and reported having visual changes and than right sided weakness. She relates that the symptoms came on and lasted for about 10 minutes before resolving. She was instructed to go to the emergency room. She did go to the emergency room a CAT scan was done and that was normal. However, she was supposed she admitted to selective care and signed herself out AGAINST MEDICAL ADVICE. Upon hearing of this in the morning I did call the patient and we had her come in to labor and delivery for admission and evaluation as her symptoms were consistent with TIA and proper workup was required. In speaking with her she reports that the symptoms only lasted 10 minutes and that they had resolved and by the time I saw her in the morning of the they had completely resolved and she was not having any further symptoms. She also has gestational diabetes which, Cates her potential risks. Other vital signs however were stable. On physical exam her vital signs were stable and she was afebrile. Heart was regular, lungs were clear, extremities without pain. No lateralizing deficits could be elicited by me however neurology is being consulted wall allow them to do full workup and provide recommendations. Assessment intrauterine at 37 weeks with questionable TIA Plan neurologic evaluation and recommendations. It should be noted that heart tones were in the 140s and reactive and she has no signs of labor or contractions. Past Medical History Past Medical History: Asthma, Diabetes Mellitus History of Any Multi-Drug Resistant Organisms: None Reported Past Surgical History: No Surgical Hx Reported Past Psychological History: No Psychological Hx Reported Smoking Status: Current every day smoker Past Alcohol Use History: None Reported Past Drug Use History: None Reported - Past Family History Mother Family Medical History: No Reported History Medications and Allergies Home Medications Medication Instructions Recorded Confirmed Type Pnv with Ca,No.72/Iron/FA 1 tab PO DAILY 03/14/16 08/31/16 History [ Plus Tablet] Acetaminophen [Tylenol] 650 mg PO Q6H PRN 08/30/16 08/31/16 History Albuterol Inhaler [Ventolin Hfa 2 puff INHALATION RT-Q6H PRN 08/30/16 08/31/16 History Inhaler] glyBURIDE [Glyburide] 1.25 mg PO BID 08/30/16 08/31/16 History Allergies Allergy/AdvReac Type Severity Reaction Status Date / Time No Known Allergies Allergy Verified 08/31/16 12:24 Exam Osteopathic Statement: *. No significant issues noted on an osteopathic structural exam other than those noted in the History and Physical/Consult. - Vital Signs Vital signs: Vital Signs Temp Pulse Resp BP 08/31/16 12:22 98.4 F 94 16 114/64 Intake and Output 08/31/16 09/01/16 09/01/16 22:59 06:59 14:59 Other: # Voids 1 2 Results Abnormal Lab Results - Last 24 Hours (Table) 08/31/16 08/31/16 09/01/16 Range/Units 13:02 21:24 09:56 POC Glucose (mg/dL) 110 H 137 H 120 H (75-99) mg/dL
--- NOTE | 2016-09-01 10:51 | P.DS ---
Providers Date of admission: 08/31/16 11:55 Expected date of discharge: 09/01/16 Attending physician: Tye Keller Consults: 08/31/16 12:40 Consult Physician Urgent Consulting Provider: Miguel Sebastian Consult Reason/Comments: TIA Do you want consulting provider notified?: Yes 09/01/16 08:00 Consult Physician Urgent Consulting Provider: Jean Paul Yu Consult Reason/Comments: Coagulopathy work-up for recurrent TIA and miscarriages. Do you want consulting provider notified?: Yes Hospital Course: Karime seen and evaluated this morning. Her nonstress test was reactive. She was dilated to 1 cm 50% effaced and -3 station. She voices no complaints and is requesting discharge to home. It should be noted that she had a [address] Beck sitting at bedside which she has been drinking and was about two thirds finished. This is clearly not on her diabetic diet and raises the questions to how accurate her numbers within her lochia been as she does not appear to be following her diet well if at all. She was seen by neurology and I believe hematology and they're working up for a hypercoagulable state but she is asymptomatic this time and it appears that her cardiac echo was normal. I believe we are waiting on the carotid Dopplers and if those are normal likely she will be able to go home will verify with neurology before discharge. Assuming she is able to go home will plan to see her in the office on Monday and we'll plan to schedule an induction soon so that we can have her delivered before 40 weeks. Her vital signs are otherwise stable and she is afebrile. Heart regular, lungs clear, extremities without pain. There is minimal peripheral edema noted bilaterally. Abdomen is soft and her contractions. Assessment intrauterine at 37 weeks 6 days gestation plan likely discharged home later today follow up with me on Monday and we'll wait for results of labs done by hematology. Patient Condition at Discharge: Good Plan - Discharge Summary Discharge Medication List Pnv with Ca,No.72/Iron/FA [ Plus Tablet] 1 tab PO DAILY 03/14/16 [ History] Acetaminophen [Tylenol] 650 mg PO Q6H PRN 08/30/16 [History] Albuterol Inhaler [Ventolin Hfa Inhaler] 2 puff INHALATION RT-Q6H PRN 08/30/16 [ History] glyBURIDE [Glyburide] 1.25 mg PO BID 08/30/16 [History] Follow up Appointment(s)/Referral(s): Tye Keller DO [Doctor of Osteopathic Medicine] - 09/05/16 Activity/Diet/Wound Care/Special Instructions: Return to the emergency room with recurrent symptoms Discharge Disposition: HOME SELF-CARE
--- NOTE | 2016-09-01 11:56 | US ---
EXAMINATION TYPE: US carotid duplex BILAT DATE OF EXAM: 09/01/2016 9:48 AM COMPARISON: NONE CLINICAL HISTORY: Recurrent TIA. EXAM MEASUREMENTS: RIGHT: Peak Systolic Velocity (PSV) cm/sec ----- Right CCA: 67.7 ----- Right ICA: 82.2 ----- Right ECA: 110.9 ICA/CCA ratio: 1.2 RIGHT: End Diastole cm/sec ----- Right CCA: 18.4 ----- Right ICA: 22.5 ----- Right ECA: 13.7 LEFT: Peak Systolic Velocity (PSV) cm/sec ----- Left CCA: 58.1 ----- Left ICA: 58.1 ----- Left ECA: 74.5 ICA/CCA ratio: 0.6 LEFT: End Diastole cm/sec ----- Left CCA: 13.7 ----- Left ICA: 19.7 ----- Left ECA: 16.1 VERTEBRALS (direction of flow): Right Vertebral: unable to detect due to interference Left Vertebral: unable to detect due to interference no atherosclerotic change no hemodynamic stenosis IMPRESSION: 1. No significant hemodynamic stenosis bilaterally.
[2016-09-01] MEDS ORDERED: ACETAMINOPHEN TAB 325 MG TAB PO STA (12:29)
--- NOTE | 2016-09-01 19:18 | P.CONS ---
History of Present Illness - Reason for Consult Consult date: 09/01/16 Possible TIA, possible hypercoag state - History of Present Illness The pt is a 20 yr old WF, currently in her 35-36th week of . She was seen in the ER on 08/30/16 with c/o numbness in her left side. The pt described this as starting in her foot, and then ascending. This lasted about [address] brain was normal. She signed out AMA, but was readmitted after being contacted by Dr Keller. She was seen by Neurology, who placed a consult for possible hypercoagulable state. The pt is G2, with a prior terminating in an early 1st trimester miscarriage. She has gestational diabetes, and admitted to continuing smoking, as well as non compliance with her diet. There is no h/o VTE personally, or in the family. Her father had a CVA at age 50, but had typical risk factors ( h/o smoking, HTN ). She stated that she has had prior such episodes. Review of Systems Constitutional: Reports fatigue Eyes: denies blurred vision, denies pain Ears: deny: decreased hearing, ear discharge, earache, tinnitus Ears, nose, mouth and throat: Denies headache, Denies sore throat Cardiovascular: Denies chest pain, Denies shortness of breath Respiratory: Denies cough Gastrointestinal: Denies abdominal pain, Denies diarrhea, Denies nausea, Denies vomiting Genitourinary: Reports urinary frequency Musculoskeletal: Reports arm numbness/tingling Integumentary: Denies pruritus, Denies rash Neurological: Reports as per HPI, Reports numbness, Reports tingling Psychiatric: Denies anxiety, Denies depression Endocrine: Reports fatigue, Reports high blood sugars, Reports weight change Hematologic/Lymphatic: Reports as per HPI Past Medical History Past Medical History: Asthma, Diabetes Mellitus History of Any Multi-Drug Resistant Organisms: None Reported Past Surgical History: No Surgical Hx Reported Past Psychological History: No Psychological Hx Reported Smoking Status: Current every day smoker Past Alcohol Use History: None Reported Past Drug Use History: None Reported - Past Family History Mother Family Medical History: No Reported History Medications and Allergies Home Medications Medication Instructions Recorded Confirmed Type Pnv with Ca,No.72/Iron/FA 1 tab PO DAILY 03/14/16 08/31/16 History [ Plus Tablet] Acetaminophen [Tylenol] 650 mg PO Q6H PRN 08/30/16 08/31/16 History Albuterol Inhaler [Ventolin Hfa 2 puff INHALATION RT-Q6H PRN 08/30/16 08/31/16 History Inhaler] glyBURIDE [Glyburide] 1.25 mg PO BID 08/30/16 08/31/16 History Allergies Allergy/AdvReac Type Severity Reaction Status Date / Time No Known Allergies Allergy Verified 08/31/16 12:24 Physical Exam Vitals: Intake and Output 09/01/16 09/01/16 09/01/16 06:59 14:59 22:59 Other: # Voids 2 - Constitutional General appearance: no acute distress - EENT Eyes: EOMI, PERRLA ENT: hearing grossly normal, normal oropharynx - Respiratory Respiratory: bilateral: CTA - Cardiovascular Rhythm: regular Heart sounds: normal: S1, S2 - Gastrointestinal General gastrointestinal: distended, organomegaly (uterus enlarged) - Integumentary Integumentary: normal - Neurologic Neurologic: CNII-XII intact - Musculoskeletal Musculoskeletal: strength equal bilaterally - Psychiatric Psychiatric: A&O x's 3 Results Labs: Abnormal Lab Results - Last 24 Hours (Table) 08/31/16 09/01/16 Range/Units 21:24 09:56 POC Glucose (mg/dL) 137 H 120 H (75-99) mg/dL CT Scan - head: report reviewed Assessment and Plan (1) TIA (transient ischemic attack) Narrative/Plan: On careful history, the pt's symptoms are non specific, Her CT brain was negative. Thus it is reasonable to consider that her presentation may not be due to a TIA at all. I would defer to Neurology in this regard. Carotid dopplers and ECHO were ordered for further w/u are pending - Consideration of a hypercoag state is questionable with her history and CT findings. Most hypercoag conditions do NOT cause arterial events. APL antibodies would need to be considered. However, even if testing for the same were positive, a definite diagnosis cannot be made unless the tests are persistently positive, especially without objective evidence for thrombosis. - LAC testing was ordered by Neurology. I will also check other antibodies - Recommendations for anti plt therapy or anticoagulation are difficult to make based on risk-benefit, without objective evidence of thrombosis, and potential for side effects of these agents to the pt and fetus. Status: Acute Plan: The pt was counselled strongly re adherence to her diet and smoking cessation.
[2016-09-02 06:07] LABS: Cardiolipin Ab IgG <9.0 GPL (<15); Cardiolipin Ab IgM 16.8 MPL (<12.5)
--- NOTE | 2016-09-02 12:33 | P.CNNES ---
History of Present Illness Consult date: 08/31/16 Reason for Consult: Patient with left sided numbness and is 37 weeks . History of Present Illness: This patient is a 20-year-old right-handed white female who was admitted to hospital today for evaluation of left-sided numbness and paresthesia. Patient states that over the last 4 months she has had 4 episodes of left-sided numbness involving her left arm and leg. Symptoms usually come on suddenly and it lasted 10 minutes in duration. She usually also notices some difficulty with her speech. All 4 events have resolved with no residual deficits. She was seen in the emergency room yesterday and was advised admission to hospital but she declined. She was seen by her [employer] specialist today and recommended admission to the hospital. Patient is currently 37 weeks into her current . She does have a history of miscarriage with her first conception about 2 years ago. She denies any other history of TIA or strokelike symptoms in the past. She is being treated for gestational diabetes mellitus at this time. Her current due date is scheduled for September 21 if all goes on schedule. The patient states that she did undergo a computed tomography scan of the brain yesterday which came back negative for any acute changes. We did review the CAT scan report which is reported as normal brain at this time. The patient has not had any formal evaluation for stroke or stroke workup. Specifically she has not had any carotid Doppler echocardiogram done. She does have mention that she does have a history with bleeding problems in the past. She apparently has a very excessive menstrual cycle with excessive clotting noted with her menses. This is been ongoing for the last 2 years. As mentioned she does also have a history of one miscarriage 2 years ago. The patient denies any strong family history of TIA or stroke. She recently had some laboratory testing done which failed to reveal any hematological or hyperlipidemia findings on lab testing. As mentioned due to the gestational diabetes she is being treated for this condition with oral hypoglycemic agent. The patient denies any headache or focal weakness at this time. As mentioned all 4 events lasted only 10 minutes in duration and resolved with no residual deficits. Her clinical history suggests possibility of recurrent TIA. She is now been admitted and neurology has been consulted for further evaluation and recommendations. Review of Systems Constitutional: Denies chills, Denies fever Eyes: denies blurred vision, denies pain Ears, nose, mouth and throat: Denies headache, Denies sore throat Cardiovascular: Denies chest pain, Denies shortness of breath Respiratory: Denies cough Gastrointestinal: Denies abdominal pain, Denies diarrhea, Denies nausea, Denies vomiting Genitourinary: Denies dysuria, Denies hematuria Musculoskeletal: Denies myalgias Integumentary: Denies pruritus, Denies rash Neurological: Denies numbness, Denies weakness Psychiatric: Denies anxiety, Denies depression Endocrine: Denies fatigue, Denies weight change Past Medical History Past Medical History: Asthma, Diabetes Mellitus History of Any Multi-Drug Resistant Organisms: None Reported Past Surgical History: No Surgical Hx Reported Past Psychological History: No Psychological Hx Reported Smoking Status: Current every day smoker Past Alcohol Use History: None Reported Past Drug Use History: None Reported - Past Family History Mother Family Medical History: No Reported History Medications and Allergies Home Medications Medication Instructions Recorded Confirmed Type Pnv with Ca,No.72/Iron/FA 1 tab PO DAILY 03/14/16 08/31/16 History [ Plus Tablet] Acetaminophen [Tylenol] 650 mg PO Q6H PRN 08/30/16 08/31/16 History Albuterol Inhaler [Ventolin Hfa 2 puff INHALATION RT-Q6H PRN 08/30/16 08/31/16 History Inhaler] glyBURIDE [Glyburide] 1.25 mg PO BID 08/30/16 08/31/16 History Allergies Allergy/AdvReac Type Severity Reaction Status Date / Time No Known Allergies Allergy Verified 08/31/16 12:24 Physical Examination - Vital Signs Vital Signs: Vital Signs Temp Pulse Resp BP 08/31/16 12:22 98.4 F 94 16 114/64 Intake and Output 08/31/16 08/31/16 08/31/16 06:59 14:59 22:59 Other: # Voids 1 Weight 117.934 kg Patient Weight 09/01/16 06:59 Weight 117.934 kg - Constitutional General appearance: average body habitus, cooperative - EENT EENT: PERRL, mucous membranes moist - Respiratory Respiratory: lungs clear, normal breath sounds - Cardiovascular Cardiovascular: regular rate, normal S1, normal S2 Extremities: no peripheral edema bilaterally - Gastrointestinal Gastrointestinal: normoactive bowel sounds - Integumentary Integumentary: normal - Neurologic Cranial nerve examination: PERRL, EOMI, VFF, V1/V2/V3 grossly intact, face symmetric, tongue midline, intact gag reflex, intact corneal reflex, normal palatal elevation Speech examination: intact Sensorimotor examination: intact Detailed motor examination: grossly full strength in all extremities Motor examination - right side: 5/5: biceps, triceps, wrist flexion, wrist extension, lehr operator, hip flexors, knee extensors, dorsiflexion, toe extension (EHL) , plantarflexion Motor examination - left side: 5/5: biceps, triceps, wrist flexion, wrist extension, lehr operator, hip flexors, knee extensors, dorsiflexion, toe extension (EHL) , plantarflexion Detailed sensory examination: intact Reflex and gait examination: intact Reflexes: 1+: ankle, bicep, knee, tricep - Musculoskeletal Musculoskeletal: no pain - Psychiatric Psychiatric: mood/affect appropriate, cooperative Results - Laboratory Findings Abnormal Lab Findings: Abnormal Labs 08/31/16 13:02 POC Glucose (mg/dL) 110 H Assessment and Plan (1) TIA (transient ischemic attack) Status: Acute Code(s): G45.9 - TRANSIENT CEREBRAL ISCHEMIC ATTACK, UNSPECIFIED (2) History of miscarriage Status: Acute Code(s): Z87.59 - PERSONAL HISTORY OF COMP OF PREG, CHLDBRTH AND THE PUERP (3) Gestational diabetes mellitus Status: Acute Code(s): O24.419 - GESTATIONAL DIABETES MELLITUS IN , UNSP CONTROL (4) Hyperlipidemia Status: Acute Code(s): E78.5 - HYPERLIPIDEMIA, UNSPECIFIED Plan: This patient is a 20-year-old right-handed white female admitted with symptoms of recurrent left-sided paresthesias and numbness. Patient is currently 37 weeks into her first . She is reported for episodes of recurrent left-sided paresthesias over the past 4 months. These episodes last only 10 minutes in duration and quickly resolved. Each episode has caused her some word finding difficulties and slurred speech. Her clinical history suggests possibility of recurrent TIA. We have recommended she undergo a carotid Doppler and echocardiogram for further evaluation and stroke workup. We will also check a lipid profile for the patient. Patient does have a history of miscarriage about 2 years ago with her first conception. We have recommended a hematology consultation for further assessment of hypercoagulable state in this patient as she also has a clotting disorder per her history. We will continue close neurological follow-up with this patient who is currently 37 weeks . Her neurological examination at this time is nonfocal. Since she is 37 weeks we would not recommend any specific medication for TIA or stroke at this time. She is due to deliver her child 09/21/2016 after which she may be started on aspirin therapy for secondary stroke prevention. Case was discussed at length today with the patient. All of her questions were answered. She is aware of our current recommendations and treatment plan. Overall prognosis at this time remains guarded. Time with Patient: Greater than 30
== END 2016-09-01 13:00 | disposition home or self-care (01) ==
LOC: 4FBP 11:55
PROVIDERS: ADMIT Obstetrics & Gynecology; ATTEND Obstetrics & Gynecology
DX: O26.893 Other specified pregnancy related conditions, third trimester (principal); R20.0 Anesthesia of skin; O24.429 Gestational diabetes mellitus in childbirth, unspecified control; O99.334 Smoking (tobacco) complicating childbirth; F17.200 Nicotine dependence, unspecified, uncomplicated; O99.52 Diseases of the respiratory system complicating childbirth; J45.909 Unspecified asthma, uncomplicated; Z79.899 Other long term (current) drug therapy; Z79.84 Long term (current) use of oral hypoglycemic drugs; Z87.59 Personal history of other complications of pregnancy, childbirth and the puerperium; Z3A.37 37 weeks gestation of pregnancy; Z82.49 Family history of ischemic heart disease and other diseases of the circulatory system; Z91.11 Patient's noncompliance with dietary regimen; E78.5 Hyperlipidemia, unspecified; O99.284 Endocrine, nutritional and metabolic diseases complicating childbirth
CPT/HCPCS: 93306; 86147; 93880; G0379; G0378 ×2

== ENCOUNTER 2016-09-10 09:59 | Outpatient (CLI) | payer OTHER ==
[2016-09-10 10:15] VITALS: PULSE 72; RESP 17; TEMP 96.9
[2016-09-10 11:01] VITALS: BP 116/67
== END 2016-09-10 11:02 | disposition home or self-care (01) ==
LOC: FBPOP 09:59
PROVIDERS: ATTEND Obstetrics & Gynecology
DX: O99.89 Other specified diseases and conditions complicating pregnancy, childbirth and the puerperium (principal); R51 Headache; Z3A.38 38 weeks gestation of pregnancy
CPT/HCPCS: 59025

== ENCOUNTER 2016-09-16 06:00 | Inpatient (IN) | payer OTHER ==
[2016-09-16] MEDS ORDERED: CARBOPROST TROMETHAMINE 250 MCG/ML 1 ML AMP IM PRN (06:42)
[2016-09-16] MEDS ORDERED: OXYTOCIN 10 UNIT/ML 1 ML VIAL IM PRN (06:42)
[2016-09-16] MEDS ORDERED: TERBUTALINE 1 MG/ML VIAL SQ PRN (06:42)
[2016-09-16] MEDS ORDERED: LIDOCAINE 1% (PF) 10 MG/ML (30 ML SDV) SQ PRN (06:42)
[2016-09-16] MEDS ORDERED: METHYLERGONOVINE 0.2 MG/ML 1 ML AMP IM PRN (06:42)
[2016-09-16] MEDS ORDERED: OXYTOCIN 20 UNITS/1000 ML NS 1,000 ML IV SCH (06:45)
[2016-09-16] MEDS: LACTATED RINGERS 1,000 ML IV SCH ×2 (07:10→13:33)
[2016-09-16 07:24] LABS: Glucose,Whole Blood 86 mg/dL (75-99)
[2016-09-16 07:54] LABS: Basophils # (A) 0.1 k/uL (0-0.2); Basophils % (A) 1 %; CH 30.1; CHCM 33.4; Eosinophils # (A) 0.1 k/uL (0-0.7); Eosinophils % (A) 1 %; HCT 35.6 % (34.0-46.0); HDW 2.79; HGB 11.8 gm/dL (11.4-16.0); Luc # (Auto) 0.26; Luc % (Auto) 2; Lymphocytes # (A) 2.4 k/uL (1.0-4.8); Lymphocytes % (A) 22 %; MCHC 33.2 g/dL (31.0-37.0); MCV 90.4 fL (80.0-100.0); Mean Platelet Volume 7.6; Monocytes # (A) 0.5 k/uL (0-1.0); Monocytes % (A) 4 %; Neutrophils # (A) 7.7 k/uL (1.3-7.7); Neutrophils % (A) 70 %; RBC 3.93 m/uL (3.80-5.40); RDW 14.4 % (11.5-15.5); WBC (Perox) 10.91
--- NOTE | 2016-09-16 08:38 | P.HPOB ---
History of Present Illness H&P Date: 09/16/16 Chief Complaint: IUP term: induction of labor Is a 19-year-old G P0 at 39 weeks gestation who arrives for induction of labor. Her Precis course has been complicated by gestational diabetes and a remote history of chlamydial infection. It is also noted that earlier in the she was admitted for TIA-like symptoms but nothing was found on those evaluations. She has not followed her diet very well for her gestational diabetes and on occasion was noted to be drinking Dr. Beck. She has been followed with high risk as well a hemoglobin A1c is pending this morning but fasting blood sugar this morning was 88. Other pertinent labs do include A- blood type Rh antibody was negative rubella, hepatitis B surface antigen, RPR were all negative. It is noted this morning that shortly after arriving she got up she's the restroom and said that she started having right sided facial numbness. She denies weakness she denies any other lateralizing features. She was admitted for TIA-like symptoms about a month ago and nothing was found. This morning on evaluation at this time of artificial rupture membranes it is noted that she has no lateralizing features. Cranial nerves II through XII all appear grossly intact. Bilaterally arm strength is normal and equal as is Delgado strength. Unclear etiology for her right-sided facial weakness which is resolving at this time and is only been present for a few its. I am not clear if this is some type of neurologic issue or if she has anxiety or fatigue or any other of number of possibilities. We'll plan to consult neurology. Should this progress and there is concern over possible AUGUSTIN or other strokelike symptoms will almost certainly plan for urgent section to get the baby delivered so that we can get her to any other studies that may be required for full evaluation of her symptoms. Her blood pressure this morning 122/78. Other vital signs are also stable. Heart regular, lungs clear, extremities are without pain. There is minimal 1+ pitting edema I lateral lower extremities. She denies headache this morning but does have some blurry vision she says precluding the right eye with numbness along her right side of her face. Assessment intrauterine at 39 weeks with gestational diabetes and questionable TIA-like symptoms earlier in the as well as today. Plan for now Pitocin augmentation of labor however should symptomatology change and progressed with likely plan for section so that other studies can be done as needed. Past Medical History Past Medical History: Asthma, Diabetes Mellitus History of Any Multi-Drug Resistant Organisms: None Reported Past Surgical History: No Surgical Hx Reported Past Psychological History: No Psychological Hx Reported Smoking Status: Current every day smoker Past Alcohol Use History: None Reported Past Drug Use History: None Reported - Past Family History Mother Family Medical History: No Reported History Medications and Allergies Home Medications Medication Instructions Recorded Confirmed Type Pnv with Ca,No.72/Iron/FA 1 tab PO DAILY 03/14/16 09/16/16 History [ Plus Tablet] Acetaminophen [Tylenol] 650 mg PO Q6H PRN 08/30/16 09/16/16 History Albuterol Inhaler [Ventolin Hfa 2 puff INHALATION RT-Q6H PRN 08/30/16 09/16/16 History Inhaler] glyBURIDE [Glyburide] 1.25 mg PO BID 08/30/16 09/16/16 History Allergies Allergy/AdvReac Type Severity Reaction Status Date / Time No Known Allergies Allergy Verified 09/16/16 06:37 Exam Osteopathic Statement: *. No significant issues noted on an osteopathic structural exam other than those noted in the History and Physical/Consult. - Vital Signs Vital signs: Intake and Output 09/15/16 09/16/16 09/16/16 22:59 06:59 14:59 Other: Weight 118.388 kg Results Result Diagrams: 09/16/16 07:03 Abnormal Lab Results - Last 24 Hours (Table) 09/16/16 Range/Units 07:03 WBC 11.0 H (3.8-10.6) k/uL
[2016-09-16 09:19] LABS: Glucose,Whole Blood 80 mg/dL (75-99)
[2016-09-16 09:30] LABS: ALT 26 U/L (9-52); AST 33 U/L (14-36); Blood Urea Nitrogen 11 mg/dL (7-17); Non-African American GFR(MDRD) >60 (>60 ml/min/1.73 sqM); Uric Acid 7.7 mg/dL (3.7-7.4)
[2016-09-16 09:41] VITALS: BMI 49.3
[2016-09-16] MEDS: BUTORPHANOL 1 MG/ML 1 ML VIAL IV PRN ×2 (10:59→12:39)
[2016-09-16] MEDS ORDERED: BUTORPHANOL 1 MG/ML 1 ML VIAL IV PRN (12:31)
[2016-09-16 15:21] LABS: Hemoglobin A1C 5.8 % (4.2-6.1)
[2016-09-16 15:36] LABS: Glucose,Whole Blood 84 mg/dL (75-99)
[2016-09-16] MEDS ORDERED: ceFAZolin 2 GM in SODIUM CHLORIDE 0.9% 100 ML IVPB ONE (16:13)
[2016-09-16] MEDS ORDERED: CITRIC ACID-SODIUM CITRATE 15 ML CUP PO ONE (16:13)
[2016-09-16] MEDS ORDERED: PROPOFOL 10 MG/ML 20 ML VIAL IV ONE (16:55)
[2016-09-16] MEDS ORDERED: GLYCOPYRROLATE 0.2 MG/ML 2 ML VIAL ONE (16:55)
[2016-09-16] MEDS ORDERED: ONDANSETRON 4 MG/2 ML VIAL ONE (16:55)
[2016-09-16] MEDS ORDERED: PHENYLEPHRINE-0.9% NACL SYG 1 MG/10 ML SYRINGE ONE (16:55)
[2016-09-16] MEDS ORDERED: LACTATED RINGERS 1,000 ML BAG IV ONE (16:55)
[2016-09-16] MEDS ORDERED: SUCCINYLCHOLINE CHLORIDE 100 MG/5 ML SYR IV ONE (16:55)
[2016-09-16] MEDS ORDERED: ePHEDrine 50 MG/ML 1 ML AMP ONE (16:55)
[2016-09-16] MEDS ORDERED: KETOROLAC 30 MG/ML 1 ML VIAL ONE (16:55)
[2016-09-16] MEDS ORDERED: OXYTOCIN 10 UNIT/ML 1 ML VIAL ONE (16:55)
[2016-09-16] MEDS ORDERED: fentaNYL (PF) 50 MCG/ML 2 ML AMP ONE (16:55)
--- NOTE | 2016-09-16 17:42 | P.OP ---
Date of Procedure: 09/16/16 Preoperative Diagnosis: Uterine at term: Failure to progress Postoperative Diagnosis: Same with occiput posterior position Procedure(s) Performed: Primary low transverse section Anesthesia: NATHANAEL Surgeon: Tye Keller Planer Hand #1: Joann Lynne Estimated Blood Loss (ml): 500 IV fluids (ml): 1,000 Urine output (ml): 100 Pathology: other (Placenta) Condition: stable Disposition: floor Operative Findings: Male weight of 8 lbs. 4 oz. occiput posterior position Description of Procedure: Patient was taken to the operative suite where a general anesthetic was found be adequate. Due to her numbness earlier in the day anesthesia topical comfortable with regional anesthesia. That is why she went to a general anesthetic. However since the original episodes morning she has had no other problems or concerns with the numbness and has had no other symptoms throughout the day. She did dilate to 3 cm and at that point did not come down any further over a six-hour period again to have. She was therefore taken to the operating suite for above. Once anesthesia was verified a Pfannenstiel skin incision was made and this incision was then carried through to underlying layer of the fashion with the second knife. Fascia was then nicked in the midline and this opening was extended laterally with Israel scissors. Superior and inferior aspect of this incision were then grasped tented up and bluntly entered sharply dissected off the rectus muscles. Rectus muscles were then divided in the midline and sharp dissection through the peritoneum was made. His opening was then extended superiorly and inferiorly with good visualization of both bowel and bladder. Bladder blade was then placed in the bladder flap was identified grasped with pickups and entered sharply with Metzenbaum scissors. This opening was then extended across the face of the uterus with Metzenbaum scissors and the bladder flap was digitally created. Knife was then used to incise uterus this opening was completed with a hemostat and then extended bluntly. Despite efforts were unable to bring the baby's head all the way into the incision therefore following identification of occiput posterior position a vacuum was placed and pumped up to the green level and then with 1 pull lasting less than 10 seconds able to bring the baby into the surgical incision fully and deliver the baby's head. Mouth and nares were then bulb suctioned and posterior shoulders then delivered with gentle downward upper traction. Once baby was fully delivered the umbilical cord was clamped cut usual fashion an nursery personnel was present to assume care. Placenta was then delivered intact and Pitocin was added to the IV. Uterus was then exteriorized cleared of clots and debris and closed in 2 layers with 0 Vicryl suture. Once excellent hemostasis was obtained 3-0 Vicryl was used to reapproximate the bladder flap. Blood and debris was then suctioned from the posterior cul-de-sac and the uterus was reinserted into the abdomen. Peritoneal layer was then reapproximated with 0 Vicryl suture fascial layer was closed with 0 Vicryl suture one layer of 3-0 Vicryl was placed in deep subcuticular tissues to reapproximate skin and close the space and the skin was then closed with 30 on a Shivam needle. Sponge, lap, needle counts were all correct 2 and patient was taken to the recovery room in stable and satisfactory condition.
[2016-09-16] MEDS ORDERED: ZOLPIDEM 5 MG TAB PO PRN (18:13)
[2016-09-16] MEDS ORDERED: ACETAMINOPHEN TAB 325 MG TAB PO PRN (18:13)
[2016-09-16] MEDS ORDERED: diphenhydrAMINE 50 MG/ML 1 ML VIAL IVP PRN ×2 (18:13)
[2016-09-16] MEDS ORDERED: NALOXONE 0.4 MG/ML 1 ML VIAL IV PRN (18:13)
[2016-09-16] MEDS ORDERED: METOCLOPRAMIDE 5 MG/ML 2 ML VIAL IVP PRN (18:13)
[2016-09-16] MEDS ORDERED: KETOROLAC 30 MG/ML 1 ML VIAL IVP PRN (18:13)
[2016-09-16] MEDS ORDERED: ONDANSETRON 4 MG/2 ML VIAL IVP PRN (18:13)
[2016-09-16] MEDS ORDERED: diphenhydrAMINE 25 MG CAP PO PRN (18:13)
[2016-09-16] MEDS ORDERED: diphenhydrAMINE 50 MG CAP PO PRN (18:13)
[2016-09-16] MEDS ORDERED: LACTATED RINGERS 1,000 ML IV SCH (18:15)
[2016-09-16] MEDS: HYDROmorphone PCA 5 MG/25 ML SYRINGE IV PRN (18:41)
[2016-09-17] MEDS: HYDROmorphone PCA 5 MG/25 ML SYRINGE IV PRN (06:19)
[2016-09-17 08:06] LABS: Basophils % (A) 0 %; CH 30.2; CHCM 33.1; Eosinophils % (A) 0 %; HDW 2.72; HGB 10.5 gm/dL (11.4-16.0); Luc # (Auto) 0.27; Luc % (Auto) 2; Lymphocytes # (A) 1.5 k/uL (1.0-4.8); Lymphocytes % (A) 13 %; MCHC 32.8 g/dL (31.0-37.0); MCV 91.6 fL (80.0-100.0); Mean Platelet Volume 7.7; Monocytes # (A) 0.5 k/uL (0-1.0); Monocytes % (A) 4 %; Neutrophils # (A) 9.9 k/uL (1.3-7.7); Neutrophils % (A) 81 %; RBC 3.49 m/uL (3.80-5.40); RDW 14.7 % (11.5-15.5); WBC 12.2 k/uL (3.8-10.6); WBC (Perox) 12.55
[2016-09-17] MEDS: SENNOSIDES-DOCUSATE SODIUM 1 EACH TAB PO SCH (08:43)
--- NOTE | 2016-09-17 10:34 | P.PNOBGPC ---
Subjective - Subjective Principal diagnosis: Postop Day 1 Interval history: Overall Karime is doing very well. She is able to ambulate and void. She is tolerating a diet. She voices no complaints other than just being sore. We'll plan to switch her over from Dilaudid WELCOME HOSTESS to by mouth pain medications this afternoon. Her vital signs are stable and she is afebrile. Heart regular, lungs clear, extremities without pain. Assessment postop day 1. Plan continue current care. Patient reports: Reports appetite normal [place]: doing well Objective - Vital Signs Latest vital signs: Vital Signs Temp Pulse Resp BP Pulse Ox 09/17/16 07:59 98.4 F 73 16 102/58 98 09/17/16 04:00 98.9 F 83 16 103/51 09/17/16 00:00 97.1 F L 92 16 121/69 09/16/16 19:56 81 16 129/67 99 09/16/16 19:26 96.2 F L 86 16 129/70 99 09/16/16 18:56 95 16 149/66 96 09/16/16 18:35 96.0 F L 85 18 128/60 96 09/16/16 18:20 68 18 136/86 97 09/16/16 18:05 92 18 121/73 100 09/16/16 17:50 96.1 F L 86 18 124/65 100 Intake and Output 09/16/16 09/17/16 09/17/16 22:59 06:59 14:59 Intake Total 625 3000 Output Total 3000 Balance 625 0 Intake: IV 625 Oxytocin 20 Units/1000 ml 625 Ns 1,000 ml @ 1 MILLIUNIT/MIN 3 mls/hr IV .Q24H MIGUEL ANGEL Rx#:[id number] Oral 3000 Output: Urine 1500 Uretheral (Ku) 1500 Other 1500 Other: # Voids 2 - Labs Labs: Abnormal Lab Results - Last 24 Hours (Table) 09/17/16 Range/Units 07:37 WBC 12.2 H (3.8-10.6) k/uL RBC 3.49 L (3.80-5.40) m/uL Hgb 10.5 L (11.4-16.0) gm/dL Hct 32.0 L (34.0-46.0) % Neutrophils # 9.9 H (1.3-7.7) k/uL
[2016-09-17] MEDS ORDERED: Acetaminophen-Codeine 300-30mg TAB PO PRN (11:14)
[2016-09-17] MEDS: Acetaminophen-Codeine 300-30mg TAB PO PRN ×3 (11:23→20:59)
[2016-09-17] MEDS: IBUPROFEN 600 MG TAB PO PRN (21:00)
[2016-09-18] MEDS: SENNOSIDES-DOCUSATE SODIUM 1 EACH TAB PO SCH (07:37)
[2016-09-18] MEDS: Acetaminophen-Codeine 300-30mg TAB PO PRN ×2 (07:38→14:58)
[2016-09-18 08:16] VITALS: BP 114/72; PULSE 89; RESP 16; TEMP 98.7
--- NOTE | 2016-09-18 09:58 | P.DS ---
Providers Date of admission: 09/16/16 06:27 Expected date of discharge: 09/18/16 Attending physician: Tye Keller Primary care physician: Екатерина Otero Hospital Course: And was doing very well post op day 2. She is ambulating, voiding, and she is tolerating her diet. She voices no complaint. Vital signs are stable and afebrile. Heart regular, lungs clear, extremities without pain. Prescriptions for towel 3 and Motrin provided. Her abdomen is soft uterus is firm incision is clean dry and intact. Assessment postop day 2. Plan discharged home follow up with me in 1 week. Discharge instructions were thoroughly reviewed and all questions are answered for her prior to her discharge. Patient Condition at Discharge: Good Plan - Discharge Summary New Discharge Prescriptions: Acetaminophen-Codeine 300-30mg [Tylenol #3] 1 tab PO Q4H PRN #30 tablet PRN Reason: Pain Ibuprofen [Motrin] 600 mg PO Q6HR PRN #30 tab PRN Reason: Pain Discharge Medication List Pnv with Ca,No.72/Iron/FA [ Plus Tablet] 1 tab PO DAILY 03/14/16 [ History] Acetaminophen [Tylenol] 650 mg PO Q6H PRN 08/30/16 [History] Albuterol Inhaler [Ventolin Hfa Inhaler] 2 puff INHALATION RT-Q6H PRN 08/30/16 [ History] glyBURIDE [Glyburide] 1.25 mg PO BID 08/30/16 [History] Acetaminophen-Codeine 300-30mg [Tylenol #3] 1 tab PO Q4H PRN #30 tablet [Rx] Ibuprofen [Motrin] 600 mg PO Q6HR PRN #30 tab 09/18/16 [Rx] Follow up Appointment(s)/Referral(s): Tye Keller DO [Doctor of Osteopathic Medicine] - 1 Week Activity/Diet/Wound Care/Special Instructions: No heavy lifting, limit stairs and driving, pelvic rest. If any high temperatures, heavy bleeding, or severe pain call my office Discharge Disposition: HOME SELF-CARE
[2016-09-18] MEDS: IBUPROFEN 600 MG TAB PO PRN (12:13)
== END 2016-09-18 15:15 | disposition home or self-care (01) | DRG 766 ==
LOC: 4FBP 06:27
PROVIDERS: ADMIT Obstetrics & Gynecology; ATTEND Obstetrics & Gynecology
PROC: 3E033VJ Introduction of Other Hormone into Peripheral Vein, Percutaneous Approach (ICD-10-PCS; 2016-09-16)
PROC: 10907ZC Drainage of Amniotic Fluid, Therapeutic from Products of Conception, Via Natural or Artificial Opening (ICD-10-PCS; 2016-09-16)
PROC: 10D00Z1 Extraction of Products of Conception, Low, Open Approach (ICD-10-PCS; principal; 2016-09-16 06:00)
DX: O24.429 Gestational diabetes mellitus in childbirth, unspecified control (principal); F17.200 Nicotine dependence, unspecified, uncomplicated; Z37.0 Single live birth; O99.334 Smoking (tobacco) complicating childbirth; Z3A.39 39 weeks gestation of pregnancy; O62.2 Other uterine inertia; J45.909 Unspecified asthma, uncomplicated; O99.52 Diseases of the respiratory system complicating childbirth
CPT/HCPCS: 82565; 83036; 84450; 84460; 84520; 84550; 85025; 86850; 86900; 86901; 88307

== ENCOUNTER 2016-11-04 16:12 | Emergency (ER) | payer OTHER ==
[2016-11-04 16:26] VITALS: PULSE 87; RESP 18; TEMP 97.5
[2016-11-04] MEDS ORDERED: SODIUM CHLORIDE 0.9% 1,000 ML IV ONE (16:40)
--- NOTE | 2016-11-04 17:06 | ED ---
Syncope HPI - General Chief Complaint: Syncope Stated Complaint: syncope Time Seen by Provider: 11/04/16 16:39 Source: patient, RN notes reviewed, old records reviewed Mode of arrival: EMS Limitations: no limitations - History of Present Illness Initial Comments: 20-year-old female presents to the ED chief complaint of a syncopal episode while donating plasma today. Patient reports that she done a plasma twice a week. She states she's been doing that for the past 8 weeks. Patient states that they normally give her saline after she donates however she did not receive a total bag. They then gave her water to drink. Patient warts that she cannot drink the full water and stood up. Patient walked over to the plasma medical secretary desk and states she felt lightheaded. At that point somebody did catch her and brought her slowly to the ground. She did not hit her head. Patient denies any chest pain, shortness of breath, nausea, vomiting, back pain , abdominal pain, nausea vomiting, numbness or tingling, dysuria or hematuria, constipation or diarrhea, headaches or visual changes, or any other current symptoms. Patient reports that she feels totally fine now. She states that she does have a minor headache that she's had a headache all day today prior to the syncopal episode. - Related Data Home Medications Medication Instructions Recorded Confirmed Acetaminophen [Tylenol] 650 mg PO Q6H PRN 08/30/16 11/04/16 Albuterol Inhaler [Ventolin Hfa 2 puff INHALATION RT-Q6H PRN 08/30/16 11/04/16 Inhaler] Aviane Control 1 tab PO DAILY@1700 11/04/16 11/04/16 Allergies Allergy/AdvReac Type Severity Reaction Status Date / Time No Known Allergies Allergy Verified 11/04/16 16:31 Review of Systems ROS Statement: Those systems with pertinent positive or pertinent negative responses have been documented in the HPI. ROS Other: All systems not noted in ROS Statement are negative. Past Medical History Past Medical History: Asthma, Diabetes Mellitus History of Any Multi-Drug Resistant Organisms: None Reported Past Surgical History: No Surgical Hx Reported Past Psychological History: No Psychological Hx Reported Smoking Status: Current every day smoker Past Alcohol Use History: Occasional Past Drug Use History: None Reported - Past Family History Mother Family Medical History: No Reported History General Exam - General Exam Comments Initial Comments: Well-appearing 20-year-old female. No acute distress. Limitations: no limitations General appearance: alert, in no apparent distress Head exam: Present: atraumatic, normocephalic, normal inspection Eye exam: Present: normal appearance, PERRL, EOMI. Absent: scleral icterus, conjunctival injection, periorbital swelling ENT exam: Present: normal exam, mucous membranes moist Neck exam: Present: normal inspection. Absent: tenderness, meningismus, lymphadenopathy Respiratory exam: Present: normal lung sounds bilaterally. Absent: respiratory distress, wheezes, rales, rhonchi, stridor Cardiovascular Exam: Present: regular rate, normal rhythm, normal heart sounds. Absent: systolic murmur, diastolic murmur, rubs, gallop, clicks GI/Abdominal exam: Present: soft, normal bowel sounds. Absent: distended, tenderness, guarding, rebound, rigid Extremities exam: Present: normal inspection, full ROM, normal capillary refill. Absent: tenderness, pedal edema, joint swelling, calf tenderness Back exam: Present: normal inspection Neurological exam: Present: alert, oriented X3, CN II-XII intact Psychiatric exam: Present: normal affect, normal mood Skin exam: Present: warm, dry, intact, normal color. Absent: rash Course Vital Signs 11/04/16 16:22 Temperature 97.5 F L Pulse Rate 87 Respiratory 18 Rate Blood Pressure 109/50 O2 Sat by Pulse 97 Oximetry Medical Decision Making - Medical Decision Making 20-year-old female presents to the ED chief complaint of a syncopal episode while donating plasma today. Patient reports that she done a plasma twice a week. She states she's been doing that for the past 8 weeks. Patient states that they normally give her saline after she donates however she did not receive a total bag. They then gave her water to drink. Patient warts that she cannot drink the full water and stood up. Patient walked over to the plasma medical secretary desk and states she felt lightheaded. At that point somebody did catch her and brought her slowly to the ground. She did not hit her head. Patient was offered IV and blood work while in the emergency department. Patient refuses to have another IV. She is reports that she's been poked multiple times at the plasma donation center. Patient does report that she feels totally fine at this time. Patient denies any chest pain, shortness of breath, dizziness or lightheadedness. Orthostatic blood pressures are obtained. Patient was given water and milk and cookies. Patient will be discharged. Discussed the case with Dr. Rivas. understands history plan will comply. Discussed return primary's. Discussed that she needs to remain hydrated, patient likely had a vasovagal episode causing syncope. Disposition Clinical Impression: Vasovagal syncope Disposition: HOME SELF-CARE Condition: Good Instructions: Dehydration (ED), Syncope (ED) Additional Instructions: Patient advised to rest, increase fluids. Patient advised to avoid doing plasma donation for the next week. Return to the emergency department if any alarming signs or symptoms occur. Referrals: Екатерина Otero MD [Primary Care Provider] - 1-2 days Time of Disposition: 17:05
[2016-11-04 17:22] VITALS: BP 100/61
== END 2016-11-04 17:45 | disposition home or self-care (01) ==
LOC: EC 16:12
DX: R55 Syncope and collapse (principal); R51 Headache; F17.200 Nicotine dependence, unspecified, uncomplicated; Z79.3 Long term (current) use of hormonal contraceptives
CPT/HCPCS: 99284

== ENCOUNTER 2017-07-08 22:43 | Emergency (ER) | payer OTHER ==
[2017-07-08] MEDS ORDERED: IPRATROPIUM-ALBUTEROL 3 ML NEB INHALATION STA ×2 (23:12→23:52)
--- NOTE | 2017-07-08 23:17 | ED ---
General Adult HPI - General Chief complaint: Upper Respiratory Infection Stated complaint: Cough/Congestion Hx-Bronchitis Time Seen by Provider: 07/08/17 22:45 Source: patient Mode of arrival: ambulatory Limitations: no limitations - History of Present Illness Initial comments: This is a 21-year-old female who presents emergency Department complaining of a weeklong history of some wheezing as well as a dry cough. Patient states she was seen at another emergency department approximately week ago and they did not do anything for her according to her. Patient also states she continues to smoke. Patient states she is 14 weeks as well. Patient denies any fever or chills. Patient denies any abdominal pain. Patient denies any nausea vomiting diarrhea. Patient states she does not want any x-rays. - Related Data Home Medications Medication Instructions Recorded Confirmed Albuterol Inhaler [Ventolin Hfa 2 puff INHALATION RT-Q6H PRN 08/30/16 07/08/17 Inhaler] Previous Rx's Medication Instructions Recorded Albuterol Inhaler [Ventolin Hfa 1 - 2 puff INHALATION Q6HR PRN #2 07/09/17 Inhaler] puff Azithromycin [Zithromax Tri-Dank] 500 mg PO DAILY #3 tab 07/09/17 Allergies Allergy/AdvReac Type Severity Reaction Status Date / Time No Known Allergies Allergy Verified 07/08/17 22:49 Review of Systems ROS Statement: Those systems with pertinent positive or pertinent negative responses have been documented in the HPI. ROS Other: All systems not noted in ROS Statement are negative. Past Medical History Past Medical History: Asthma, Diabetes Mellitus History of Any Multi-Drug Resistant Organisms: None Reported Past Surgical History: Section Past Psychological History: No Psychological Hx Reported Smoking Status: Current every day smoker Past Alcohol Use History: Occasional Past Drug Use History: None Reported - Past Family History Mother Family Medical History: No Reported History General Exam - General Exam Comments Initial Comments: GENERAL: Patient is well-developed and well-nourished. Patient is nontoxic and well- hydrated and is in mild distress. ENT: Neck is soft and supple. No significant lymphadenopathy is noted. Oropharynx is clear. Moist mucous membranes. Neck has full range of motion without eliciting any pain. EYES: The sclera were anicteric and conjunctiva were pink and moist. Extraocular movements were intact and pupils were equal round and reactive to light. Eyelids were unremarkable. PULMONARY: Patient has expiratory wheeze diffusely CARDIOVASCULAR: There is a regular rate and rhythm without any murmurs gallops or rubs. ABDOMEN: Soft and nontender with normal bowel sounds. No palpable organomegaly was noted. There is no palpable pulsatile mass. SKIN: Skin is clear with no lesions or rashes and otherwise unremarkable. NEUROLOGIC: Patient is alert and oriented x3. Cranial nerves II through XII are grossly intact. Motor and sensory are also intact. Normal speech, volume and content. Symmetrical smile. MUSCULOSKELETAL: Normal extremities with adequate strength and full range of motion. LYMPHATICS: No significant lymphadenopathy is noted PSYCHIATRIC: Normal psychiatric evaluation. Normal interpersonal interactions appears functionally intact in deals appropriately with others. No signs of depression. No signs of anxiety. Limitations: no limitations Course Vital Signs 07/08/17 07/08/17 07/08/17 22:45 23:25 23:29 Temperature 98.2 F Pulse Rate 75 76 78 Respiratory 22 Rate Blood Pressure 136/84 O2 Sat by Pulse 99 Oximetry 07/08/17 23:41 Temperature Pulse Rate Respiratory 20 Rate Blood Pressure O2 Sat by Pulse Oximetry Disposition Clinical Impression: Bronchitis with bronchospasm Disposition: HOME SELF-CARE Condition: Good Instructions: Acute Bronchitis (ED) Additional Instructions: Stop smoking. Take albuterol as prescribed. Take antibiotics as prescribed. Prescriptions: Albuterol Inhaler [Ventolin Hfa Inhaler] 1 - 2 puff INHALATION Q6HR PRN #2 puff PRN Reason: Difficulty breathing Azithromycin [Zithromax Tri-Dank] 500 mg PO DAILY #3 tab Referrals: Екатерина Otero MD [Primary Care Provider] - 1-2 days Time of Disposition: 00:06
[2017-07-08] MEDS ORDERED: AZITHROMYCIN 500 MG TAB PO STA (23:52)
[2017-07-08] MEDS ORDERED: cefTRIAXone 250 MG VIAL IM STA (23:52)
[2017-07-09] MEDS ORDERED: cefTRIAXone 1,000 MG VIAL (IM USE) IM STA (00:03)
[2017-07-09 00:42] VITALS: BP 108/54; PULSE 69; RESP 18; TEMP 98.5
== END 2017-07-09 00:41 | disposition home or self-care (01) ==
LOC: EC 22:43
DX: O99.512 Diseases of the respiratory system complicating pregnancy, second trimester (principal); J40 Bronchitis, not specified as acute or chronic; J98.01 Acute bronchospasm; O99.332 Smoking (tobacco) complicating pregnancy, second trimester; F17.200 Nicotine dependence, unspecified, uncomplicated; Z3A.14 14 weeks gestation of pregnancy
CPT/HCPCS: 99283; 96372; 94640 ×2; J0696

== ENCOUNTER 2017-08-17 14:34 | Emergency (ER) | payer OTHER ==
[2017-08-17 14:39] VITALS: TEMP 98.4
[2017-08-17] MEDS ORDERED: ACETAMINOPHEN TAB 500 MG TAB PO STA (15:26)
--- NOTE | 2017-08-17 15:29 | ED ---
General Adult HPI - General Chief complaint: Extremity Injury, Lower Stated complaint: low back pain, 19wks preg Time Seen by Provider: 08/17/17 15:16 Source: patient Mode of arrival: ambulatory Limitations: no limitations - History of Present Illness Initial comments: This is a 21-year-old female who is at 19 weeks per parents emergency department for left lower back pain. She states that she was driving to work when the pain started. She describes as an aching sensation that does not radiate. She states that she does do quite a bit of lifting at work however yesterday felt fine and when she woke up she felt fine. She states the pain just started when she was driving. She does admit that the pain seems to get worse with flexing her left hip. She denies any abdominal cramping. The pain is constant and does not feel like a contraction. No vaginal bleeding or discharge. Otherwise the has been uncomplicated area and she called her WEATHERIZATION TECHNICIAN spoke with the nurse who instructed her to come the emergency department for evaluation. Patient denies any dysuria or hematuria. No other acute complaints. - Related Data Home Medications Medication Instructions Recorded Confirmed Albuterol Inhaler [Ventolin Hfa 2 puff INHALATION RT-Q6H PRN 08/30/16 08/17/17 Inhaler] Pnv No.95/Ferrous Fum/Folic AC 1 tab PO HS 08/17/17 08/17/17 [ Multivitamin Tablet] Previous Rx's Medication Instructions Recorded Amoxicillin 875 mg PO Q12HR #14 tablet 08/17/17 Allergies Allergy/AdvReac Type Severity Reaction Status Date / Time No Known Allergies Allergy Verified 08/17/17 15:21 Review of Systems ROS Statement: Those systems with pertinent positive or pertinent negative responses have been documented in the HPI. ROS Other: All systems not noted in ROS Statement are negative. Past Medical History Past Medical History: Asthma, Diabetes Mellitus History of Any Multi-Drug Resistant Organisms: None Reported Past Surgical History: Section Past Psychological History: No Psychological Hx Reported Smoking Status: Current every day smoker Past Alcohol Use History: Occasional Past Drug Use History: None Reported - Past Family History Mother Family Medical History: No Reported History General Exam - General Exam Comments Initial Comments: Constitutional: Awake alert Appears comfortable Head: Normocephalic atraumatic Eyes: no conjunctival injection No scleral icterus EOMI Neck: No JVD Supple Heart: Regular rate rhythm normal S1-S2 no murmurs Lungs: Clear to auscultation bilaterally No wheezing No rales Abdomen: Soft nondistended nontender Back: There is mild tenderness to palpation along the left paraspinal lumbar musculature. She does have some increased amount of pain with straight leg testing of the left leg however does not endorse any shooting pains down the legs. Extremities: Non edematous DP pulses intact Radial pulses intact Neuro: A&Ox3, 5 out of 5 strength with plantar flexion and dorsiflexion of bilateral lower [place], 2 out of 4 patellar reflexes bilaterally, sensation intact to light touch bilateral lower extremities No focal neurologic deficits Psych: Appropriate mood and affect Limitations: no limitations Course Vital Signs 08/17/17 14:36 Temperature 98.4 F Pulse Rate 96 Respiratory 20 Rate Blood Pressure 135/65 O2 Sat by Pulse 98 Oximetry Medical Decision Making - Medical Decision Making Is a 21-year-old female came in for acute lower back pain. Patient was evaluated at bedside and no focal neurologic findings were found. She did have some focal tenderness to the paraspinal musculature of the lumbar spine in the left. UA was performed and appeared to be contaminated however did show evidence for urinary tract infection. The patient not having any dysuria or hematuria or urinary frequency. She states that she had a UA performed yesterday that was normal. I did write her a prescription for amoxicillin however told her to call her WEATHERIZATION TECHNICIAN before starting this. I did send for a urine culture as well. Instructed the patient to use Tylenol as needed. I did write her for a back brace that she could use and told her to avoid lifting heavy things at work. She is to keep benign her symptoms. If she develops any pelvic cramping or pain or vaginal bleeding she is return emergency Department probably for reevaluation. heart tones were auscultated and heart rate was between 145 and 155 and there was auscultated movement. - Lab Data Lab Results 08/17/17 Range/Units 16:15 Urine Color Yellow Urine Appearance Turbid H (Clear) Urine pH 6.5 (5.0-8.0) Ur Specific [place] 1.018 (1.001-1.035) Urine Protein 1+ H (Negative) Urine Glucose (UA) Negative (Negative) Urine Ketones Negative (Negative) Urine Blood Negative (Negative) Urine Nitrite Negative (Negative) Urine Bilirubin Negative (Negative) Urine Urobilinogen <2.0 (<2.0) mg/dL Ur Leukocyte Esterase Moderate H (Negative) Urine RBC 11 H (0-5) /hpf Urine WBC 32 H (0-5) /hpf Ur Squamous Epith Cells 141 H (0-4) /hpf Amorphous Sediment Few H (None) /hpf Urine Bacteria Moderate H (None) /hpf Hyaline Casts 48 H (0-2) /lpf Urine Mucus Occasional H (None) /hpf Disposition Clinical Impression: Pyuria, Back pain affecting in second trimester Disposition: HOME SELF-CARE Condition: Stable Instructions: Acute Low Back Pain (ED), Lower Back Exercises (ED) Prescriptions: Amoxicillin 875 mg PO Q12HR #14 tablet Referrals: Екатерина Otero MD [Primary Care Provider] - 1-2 days
[2017-08-17 16:25] LABS: Amorphous Sediment,Urine Few /hpf; Appearance,Urine Turbid (Clear); Bacteria,Urine Moderate /hpf; Bilirubin,Urine Negative (Negative); Blood,Urine Negative (Negative); Color,Urine Yellow; Glucose,Urine (UA) Negative (Negative); Hyaline Casts,Urine 48 /lpf (0-2); Ketones,Urine Negative (Negative); Leukocyte Esterase,Urine Moderate (Negative); Mucus,Urine Occasional /hpf; Nitrite,Urine Negative (Negative); PH, Urine 6.5 (5.0-8.0); Protein,Urine 1+ (Negative); RBC,Urine 11 /hpf (0-5); Specific Gravity,Urine 1.018 (1.001-1.035); Squamous Epithelial Cell,Urine 141 /hpf (0-4); Urobilinogen,Urine <2.0 mg/dL (<2.0); WBC,Urine 32 /hpf (0-5)
[2017-08-17 17:36] VITALS: BP 122/56; PULSE 62; RESP 16
== END 2017-08-17 17:35 | disposition home or self-care (01) ==
LOC: EC 14:34
DX: O23.42 Unspecified infection of urinary tract in pregnancy, second trimester (principal); O99.332 Smoking (tobacco) complicating pregnancy, second trimester; F17.200 Nicotine dependence, unspecified, uncomplicated; Z3A.19 19 weeks gestation of pregnancy
CPT/HCPCS: 81001; 87086; 99283

== ENCOUNTER 2017-09-30 20:30 | Outpatient (CLI) | payer OTHER ==
[2017-09-30 21:05] VITALS: BP 112/58; PULSE 78; RESP 18; TEMP 97
[2017-09-30 21:19] LABS: Appearance,Urine Clear (Clear); Bacteria,Urine Occasional /hpf; Bilirubin,Urine Negative (Negative); Blood,Urine Negative (Negative); Color,Urine Yellow; Glucose,Urine (UA) Negative (Negative); Ketones,Urine Trace (Negative); Leukocyte Esterase,Urine Small (Negative); Mucus,Urine Rare /hpf; Nitrite,Urine Negative (Negative); Protein,Urine Trace (Negative); RBC,Urine 1 /hpf (0-5); Specific Gravity,Urine 1.024 (1.001-1.035); Squamous Epithelial Cell,Urine 5 /hpf (0-4); WBC,Urine 3 /hpf (0-5)
--- NOTE | 2017-10-24 10:58 | P.MSEPDOC ---
Presenting Problems - Arrival Data Date of Arrival on Unit: 09/30/17 Time of Arrival on Unit: 20:30 Mode of Transport: Wheelchair - Complaint OB-Reason for Admission/Chief Complaint: Pain, Signs/Symptoms UTI Comment: sharp shooting pain from abd to vagina Medical History - Information : 3 Para: 1 Term: 1 : 0 Abortions: Spontaneous or Elective: 1 Number of Living Children: 1 - Gestational Age Gestational Age by SERAFIN (wks/days): 26 Weeks and 0 Days - History Complications: Smoker Sexually Transmitted Diseases: Chlamydia Review of Systems - Review of Systems Constitutional: No problems Breast: No problems ENT: No problems Cardiovascular: No problems Respiratory: No problems Gastrointestinal: No problems Genitourinary: No problems Musculoskeletal: No problems Neurological: No problems Skin: No problems Vital Signs - Temperature Temperature: 97.0 F Temperature Source: Temporal Artery Scan - Pulse Right Pulse Rate: 78 Pulse Assessment Method: Pulse Oximetry - Respirations Respiratory Rate: 18 O2 Sat by Pulse Oximetry: 96 - Blood Pressure Right Arm Blood Pressure: 112/58 Blood Pressure Mean: 76 Blood Pressure Source: Automatic Cuff Medical Screen Scoring (Pre) - Cervical Exam Dilation: Exam Deferred Effacement: Exam Deferred - Uterine Contractions Frequency: N/A Duration: N/A Intensity: N/A - Maternal Vital Signs Maternal Temperature: N/A Maternal Blood Pressure: Systolic >139 = 2 Signs of Preeclampsia: N/A Maternal Respirations: N/A - Pain Assessment Pain Location and Character: Pelvic Pain Scale Used: Numeric (1 - 10) Pain Intensity: 7 Pain Management Goal: 3 Pain Description: *Acute, Sharp, Shooting Pain Frequency: Intermittent Pain Duration: 3 Pain Duration Units: Days Pain Behavior: Vocalization Pain Aggravating Factors: Activity, Standing, Walking Pharmacological Interventions: PRN Medication Non-Pharmacological Interventions: Position/Reposition - Maternal Trauma Maternal Trauma: N/A - Assessment Baseline FHR: 135 Heart Rate - NICHD Category: Category I (Normal) = 0 - Total Score Total Score (Pre): 2 - Level of Risk Level of Risk: Low (0-5) Physician Notification (Pre) - Physician Notified Physician Notified Date: 09/30/17 Physician Notified Time: 20:55 Physician/Practitioner Notifed:: Dr Reyes - Notification Comment Comment: reported on pts c/o sharp shooting pelvic pain x3 days, fhts, no cntrx per toco/pt/RN. reported on recent intercourse last night, pt came from work when the pain intensified. orders for UA, and to call office Monday for earlier appt than already scheduled October 16 appt. Orders to increase oral fluids, and pelvic rest until cleared by Dr Fregoso. d/c home if UA is neg, otherwise call for further orders Medical Screen Scoring (Post) - Cervical Exam Dilation: Exam Deferred Effacement: Exam Deferred - Uterine Contractions Frequency: N/A Duration: N/A Intensity: N/A - Maternal Vital Signs Maternal Temperature: N/A Maternal Blood Pressure: N/A Signs of Preeclampsia: N/A - Total Score Total Score (Post): 0 Physician Notification (Post) - Physician Notified Physician Notified Date: 09/30/17 Physician Notified Time: 21:23 Physician/Practitioner Notified:: Dr Reyes - Notification Comment Comment: UA results given. culture urine. d/c home with previous orders Disposition - Disposition OB Disposition: Discharge to home Discharge Date: 09/30/17 Discharge Time: 21:23 I agree with the RN Medical Screening Exam: Yes Risk & Benefit of care provided described in d/c instruction: Yes Diagnosis: URINARY TRACT INFECTION, SITE NOT SPECIFIED
== END 2017-09-30 21:30 | disposition home or self-care (01) ==
LOC: FBPOP 20:30
PROVIDERS: ATTEND Obstetrics & Gynecology
DX: O23.42 Unspecified infection of urinary tract in pregnancy, second trimester (principal); Z3A.26 26 weeks gestation of pregnancy
CPT/HCPCS: 81001; 87086; 99213

== ENCOUNTER 2017-10-13 14:55 | Outpatient (CLI) | payer OTHER ==
[2017-10-13 15:31] VITALS: BP 109/51; PULSE 95; RESP 18; TEMP 98.2
--- NOTE | 2017-10-13 17:04 | P.MSEPDOC ---
Presenting Problems - Arrival Data Date of Arrival on Unit: 10/13/17 Time of Arrival on Unit: 15:06 Mode of Transport: Ambulatory - Complaint OB-Reason for Admission/Chief Complaint: Rule Out PROM Comment: pt arrived c/o leaking of fluid when she stood up while getting her nails done. pt denies any leaking at this time Medical History - Information : 3 Para: 1 Term: 1 : 0 Abortions: Spontaneous or Elective: 1 Number of Living Children: 1 - Gestational Age Gestational Age by SERAFIN (wks/days): 27 Weeks and 6 Days - History Complications: Prior , Smoker Review of Systems - Review of Systems Constitutional: No problems Breast: No problems ENT: No problems Cardiovascular: No problems Respiratory: No problems Gastrointestinal: No problems Genitourinary: No problems Musculoskeletal: No problems Neurological: No problems Skin: No problems Vital Signs - Temperature Temperature: 98.2 F Temperature Source: Oral - Pulse Right Brachial Pulse Rate: 95 Pulse Assessment Method: Automatic Cuff - Respirations Respiratory Rate: 18 Oxygen Delivery Method: Room Air O2 Sat by Pulse Oximetry: 98 - Blood Pressure Right Arm Blood Pressure: 109/51 Blood Pressure Mean: 70 Blood Pressure Source: Automatic Cuff Medical Screen Scoring (Post) - Cervical Exam Dilation: 0 cm = 0 Effacement: Exam Deferred Membranes: Intact - Uterine Contractions Frequency: N/A Duration: N/A Intensity: N/A - Maternal Vital Signs Maternal Temperature: N/A Maternal Blood Pressure: N/A Signs of Preeclampsia: N/A Maternal Respirations: N/A - Pain Assessment Pain Scale Used: Numeric (1 - 10) Pain Intensity: 0 Pain Management Goal: 0 Pain Behavior: Vocalization - Maternal Trauma Maternal Trauma: N/A - Assessment Heart Rate: 140 Heart Rate - NICHD Category: Category I (Normal) = 0 NST: Reactive Position: N/A Station: N/A - Total Score Total Score (Post): 0 - Post Treatment Level of Risk Post Treatment Level of Risk: Low (0-5) Physician Notification (Post) - Physician Notified Physician Notified Date: 10/13/17 Physician Notified Time: 15:40 Spoke With: dr sandoval New Order Received: Yes - Notification Comment Comment: amnisure test negative. may discharge to home Disposition - Disposition OB Disposition: Discharge to home Discharge Date: 10/13/17 Discharge Time: 15:48 I agree with the RN Medical Screening Exam: Yes Risk & Benefit of care provided described in d/c instruction: Yes Diagnosis: RELATED CONDITIONS, UNSPECIFIED, SECOND TRIMESTER
== END 2017-10-13 15:48 | disposition home or self-care (01) ==
LOC: FBPOP 14:55
PROVIDERS: ATTEND Obstetrics & Gynecology
DX: O26.92 Pregnancy related conditions, unspecified, second trimester (principal); Z3A.27 27 weeks gestation of pregnancy
CPT/HCPCS: 59025; 84112; 99213

== ENCOUNTER 2017-11-11 13:50 | Outpatient (CLI) | payer OTHER ==
[2017-11-11] MEDS ORDERED: LACTATED RINGERS 1,000 ML IV SCH (14:30)
[2017-11-11 15:32] VITALS: BP 121/60; PULSE 86; RESP 16; TEMP 97.5
--- NOTE | 2017-11-12 08:45 | P.MSEPDOC ---
Presenting Problems - Arrival Data Date of Arrival on Unit: 11/11/17 Time of Arrival on Unit: 13:51 Mode of Transport: Ambulatory - Complaint OB-Reason for Admission/Chief Complaint: Possible Onset of Labor Medical History - Information : 3 Para: 1 Term: 1 : 0 Abortions: Spontaneous or Elective: 1 Number of Living Children: 1 - Gestational Age Gestational Age by SERAFIN (wks/days): 32 Weeks and 0 Days - History Comment: contx/cramping. intercourse last night Review of Systems - Review of Systems Constitutional: No problems Breast: No problems ENT: No problems Cardiovascular: No problems Respiratory: No problems Gastrointestinal: No problems Genitourinary: No problems Musculoskeletal: No problems Neurological: No problems Skin: No problems Vital Signs - Temperature Temperature: 97.5 F Temperature Source: Oral - Pulse Bilateral Apical Pulse Rate: 86 Pulse Assessment Method: Automatic Cuff - Respirations Respiratory Rate: 16 Oxygen Delivery Method: Room Air - Blood Pressure Right Arm Blood Pressure: 121/60 Blood Pressure Mean: 80 Blood Pressure Source: Automatic Cuff Medical Screen Scoring (Pre) - Cervical Exam Dilation: 0 cm = 0 Effacement: Exam Deferred Membranes: Intact - Uterine Contractions Frequency: N/A Duration: N/A Intensity: N/A - Maternal Vital Signs Maternal Temperature: N/A Maternal Blood Pressure: N/A Signs of Preeclampsia: N/A Maternal Respirations: N/A - Pain Assessment Pain Location and Character: Abdomen Pain Scale Used: Numeric (1 - 10) Pain Intensity: 2 Pain Description: Cramping Pain Frequency: Intermittent Pain Behavior: Vocalization - Maternal Trauma Maternal Trauma: N/A - Assessment Heart Rate - NICHD Category: Category I (Normal) = 0 NST: Reactive Position: N/A Station: N/A - Total Score Total Score (Pre): 0 - Level of Risk Level of Risk: N/A Physician Notification (Pre) - Physician Notified Physician Notified Date: 11/11/17 Physician Notified Time: 14:00 Physician/Practitioner Notifed:: john Spoke With: john New Order Received: Yes - Notification Comment Comment: iv hydrate, assess, sve Disposition - Disposition OB Disposition: Discharge to home Discharge Date: 11/11/17 Discharge Time: 15:30 I agree with the RN Medical Screening Exam: Yes Risk & Benefit of care provided described in d/c instruction: Yes Diagnosis: FALSE LABOR BEFORE 37 COMPLETED WEEKS OF GEST, THIRD TRI
== END 2017-11-11 15:35 | disposition home or self-care (01) ==
LOC: FBPOP 13:50
PROVIDERS: ATTEND Obstetrics & Gynecology Obstetrics
DX: O47.03 False labor before 37 completed weeks of gestation, third trimester (principal); Z3A.32 32 weeks gestation of pregnancy
CPT/HCPCS: 59025; 96365; 99214

== ENCOUNTER 2017-11-27 18:37 | Outpatient (CLI) | payer OTHER ==
[2017-11-27 18:58] LABS: Appearance,Urine Clear (Clear); Bilirubin,Urine Negative (Negative); Blood,Urine Negative (Negative); Color,Urine Yellow; Glucose,Urine (UA) Negative (Negative); Ketones,Urine Trace (Negative); Leukocyte Esterase,Urine Negative (Negative); Nitrite,Urine Negative (Negative); PH, Urine 6.5 (5.0-8.0); Protein,Urine Trace (Negative); Specific Gravity,Urine 1.021 (1.001-1.035)
[2017-11-27 20:07] VITALS: BP 106/51; PULSE 86; RESP 17; TEMP 96.8
--- NOTE | 2017-12-09 12:44 | P.MSEPDOC ---
Presenting Problems - Arrival Data Date of Arrival on Unit: 11/27/17 Time of Arrival on Unit: 18:37 Mode of Transport: Ambulatory - Complaint OB-Reason for Admission/Chief Complaint: Possible Onset of Labor Comment: "Abdominal tightening" since noon today along with lower abdominal pain. Medical History - Information : 3 Para: 1 Term: 1 : 0 Abortions: Spontaneous or Elective: 1 Number of Living Children: 1 - Gestational Age Gestational Age by SERAFIN (wks/days): 34 Weeks and 2 Days - History Complications: Prior Review of Systems - Review of Systems Constitutional: No problems Breast: No problems ENT: No problems Cardiovascular: No problems Respiratory: No problems Gastrointestinal: No problems Genitourinary: No problems Musculoskeletal: No problems Neurological: No problems Skin: No problems Vital Signs - Temperature Temperature: 96.8 F Temperature Source: Temporal Artery Scan - Pulse Pulse Oximetery Pulse Rate: 86 Pulse Assessment Method: Pulse Oximetry - Respirations Respiratory Rate: 17 Oxygen Delivery Method: Room Air O2 Sat by Pulse Oximetry: 96 - Blood Pressure Right Arm Blood Pressure: 106/51 Blood Pressure Mean: 69 Blood Pressure Source: Automatic Cuff Medical Screen Scoring (Pre) - Cervical Exam Dilation: 0 cm = 0 Effacement: Exam Deferred Membranes: Intact - Uterine Contractions Frequency: Scheduled / = 6 Duration: N/A Intensity: N/A - Maternal Vital Signs Maternal Temperature: N/A Maternal Blood Pressure: N/A Signs of Preeclampsia: N/A Maternal Respirations: N/A - Pain Assessment Pain Location and Character: Lower, Abdomen Pain Scale Used: Numeric (1 - 10) Pain Intensity: 8 Pain Management Goal: 0 Pain Description: Sharp Pain Radiation Location: n/a Pain Frequency: Occasional Pain Duration: 8 Pain Duration Units: Hours Pain Behavior: Vocalization Effects of Pain: none Pain Aggravating Factors: None Pharmacological Interventions: Discuss Pain Med Options Non-Pharmacological Interventions: Heat - Maternal Trauma Maternal Trauma: N/A - Assessment Baseline FHR: 135 Heart Rate - NICHD Category: Category I (Normal) = 0 NST: Reactive Position: N/A Station: N/A - Total Score Total Score (Pre): 6 - Level of Risk Level of Risk: Medium (6-9) Physician Notification (Pre) - Physician Notified Physician Notified Date: 11/27/17 Physician Notified Time: 19:08 Physician/Practitioner Notifed:: Zenobia Spoke With: Zenobia New Order Received: Yes (see below) - Notification Comment Comment: Send FFN and recheck cervix in one hour-if no cervical change and FFN negative, may discharge home. Disposition - Disposition OB Disposition: Discharge to home Discharge Date: 11/27/17 Discharge Time: 19:58 I agree with the RN Medical Screening Exam: Yes Risk & Benefit of care provided described in d/c instruction: Yes Diagnosis: FALSE LABOR BEFORE 37 COMPLETED WEEKS OF GEST, THIRD TRI
== END 2017-11-27 19:58 | disposition home or self-care (01) ==
LOC: FBPOP 18:37
PROVIDERS: ATTEND Obstetrics & Gynecology
DX: O47.03 False labor before 37 completed weeks of gestation, third trimester (principal); Z3A.34 34 weeks gestation of pregnancy
CPT/HCPCS: 59025; 81003; 82731; 99213

== ENCOUNTER 2017-12-12 21:50 | Outpatient (CLI) | payer OTHER ==
[2017-12-12 22:41] VITALS: BP 113/59; PULSE 85; RESP 16; TEMP 96.3
--- NOTE | 2018-01-06 10:19 | P.MSEPDOC ---
Presenting Problems - Arrival Data Date of Arrival on Unit: 12/12/17 Time of Arrival on Unit: 21:45 Mode of Transport: Wheelchair - Complaint OB-Reason for Admission/Chief Complaint: Possible Onset of Labor Medical History - Information : 3 Para: 1 - Gestational Age Gestational Age by SERAFIN (wks/days): 36 Weeks and 3 Days - History Complications: Prior , Smoker Review of Systems - Review of Systems Constitutional: No problems Breast: No problems ENT: No problems Cardiovascular: No problems Respiratory: No problems Gastrointestinal: Diarrhea Genitourinary: No problems Musculoskeletal: No problems Neurological: No problems Skin: No problems Vital Signs - Temperature Temperature: 96.3 F Temperature Source: Temporal Artery Scan - Pulse Right Sitting Brachial Pulse Rate: 85 Pulse Assessment Method: Automatic Cuff - Respirations Respiratory Rate: 16 Oxygen Delivery Method: Room Air O2 Sat by Pulse Oximetry: 97 - Blood Pressure Right Arm Sitting Blood Pressure: 113/59 Blood Pressure Mean: 77 Blood Pressure Source: Automatic Cuff Medical Screen Scoring (Pre) - Cervical Exam Dilation: 0 cm = 0 Effacement: Exam Deferred Membranes: Intact - Uterine Contractions Frequency: > 5 minutes apart = 1 Duration: N/A Intensity: N/A - Maternal Vital Signs Signs of Preeclampsia: N/A Maternal Respirations: N/A - Pain Assessment Pain Location and Character: Lower, Back, Abdomen Pain Scale Used: Numeric (1 - 10) Pain Intensity: 7 Pain Management Goal: 0 Pain Description: Cramping Pain Radiation Location: 0 Pain Frequency: Intermittent Pain Duration: 2 Pain Duration Units: Days Pain Behavior: None Exhibited Effects of Pain: 0 Pain Aggravating Factors: None - Maternal Trauma Maternal Trauma: N/A - Assessment Baseline FHR: 145 Heart Rate - NICHD Category: Category I (Normal) = 0 NST: Reactive Position: N/A Station: N/A - Total Score Total Score (Pre): 1 - Level of Risk Level of Risk: Low (0-5) Physician Notification (Pre) - Physician Notified Physician Notified Date: 12/12/17 Physician Notified Time: 22:20 Physician/Practitioner Notifed:: dr sandoval Spoke With: dr sandoval New Order Received: Yes (discharge home) Disposition - Disposition OB Disposition: Discharge to home Discharge Date: 12/12/17 Discharge Time: 22:23 I agree with the RN Medical Screening Exam: Yes Risk & Benefit of care provided described in d/c instruction: Yes Diagnosis: FALSE LABOR BEFORE 37 COMPLETED WEEKS OF GEST, THIRD TRI
== END 2017-12-12 22:23 | disposition home or self-care (01) ==
LOC: FBPOP 21:50
PROVIDERS: ATTEND Obstetrics & Gynecology
DX: O47.03 False labor before 37 completed weeks of gestation, third trimester (principal); O99.333 Smoking (tobacco) complicating pregnancy, third trimester; Z3A.36 36 weeks gestation of pregnancy
CPT/HCPCS: 59025; 84112; 99213

== ENCOUNTER 2018-01-04 10:21 | Inpatient (IN) | payer OTHER ==
[2018-01-04] MEDS ORDERED: CITRIC ACID-SODIUM CITRATE 15 ML CUP PO ONE (10:24)
[2018-01-04] MEDS ORDERED: LACTATED RINGERS 1,000 ML IV ONE (10:24)
[2018-01-04] MEDS ORDERED: ceFAZolin IN SWFI 2 GM/20 ML SYRINGE IVP ONE (10:24)
[2018-01-04 11:09] LABS: Basophils % (A) 0 %; Eosinophils % (A) 0 %; HCT 35.5 % (34.0-46.0); HGB 11.5 gm/dL (11.4-16.0); Lymphocytes # (A) 1.6 k/uL (1.0-4.8); Lymphocytes % (A) 18 %; MCH 28.5 pg (25.0-35.0); MCHC 32.3 g/dL (31.0-37.0); MCV 88.2 fL (80.0-100.0); Mean Platelet Volume 7.4; Monocytes # (A) 0.4 k/uL (0-1.0); Monocytes % (A) 5 %; Neutrophils # (A) 6.7 k/uL (1.3-7.7); Neutrophils % (A) 75 %; Platelet Count 209 k/uL (150-450); RBC 4.03 m/uL (3.80-5.40); RDW 14.6 % (11.5-15.5); WBC 8.9 k/uL (3.8-10.6)
[2018-01-04 11:33] VITALS: BMI 46.6
--- NOTE | 2018-01-04 11:54 | P.HPOB ---
History of Present Illness H&P Date: 01/04/18 Chief Complaint: 39-5/7 weeks, previous section, requesting repeat The patient is a 22-year-old 3 para 1011 admitted at 39-5/7 weeks as established by 6 week ultrasound. She is admitted for repeat low transverse section having previously undergone section for arrest of dilation and descent. Her has been uncomplicated though she was treated for chlamydia with a test of cure showing no evidence of infection. She also is Rh- and received RhoGAM at 28 weeks. Group B strep status is negative. Obstetrical history 3 para 1011 with 1 term delivery for arrest of dilation and descent. She additionally has a history of a previous miscarriage not requiring D&C. Current statistics are listed in history of present illness. EDC of 01/06/2018 was established by 6 week ultrasound. Laboratory workup demonstrates a blood type of A- with a negative antibody screen. Rubella status is immune. The remainder of the laboratory workup was within normal limits aside from positive chlamydia which was tested and cured. Early Glucola was negative for second trimester Glucola was elevated and followed by a normal three-hour glucose tolerance test. Group B strep status is negative. Gynecologic history: Unremarkable with the exception of the chlamydia during the which was treated and cured as noted above. Review of Systems Review of systems is confined to history of present illness. Past Medical History Past Medical History: Asthma Additional Past Medical History / Comment(s): PAST HX OF GESTATIONAL DIABETES. NO PROBLEMS WITH THIS History of Any Multi-Drug Resistant Organisms: None Reported Past Surgical History: Section Past Anesthesia/Blood Transfusion Reactions: No Reported Reaction Past Psychological History: No Psychological Hx Reported Smoking Status: Current every day smoker Past Alcohol Use History: None Reported Additional Past Alcohol Use History / Comment(s): SMOKES 1 PACK EVERY OTHER DAY- SINCE AGE 17 Past Drug Use History: None Reported - Past Family History Mother Family Medical History: No Reported History Medications and Allergies Home Medications Medication Instructions Recorded Confirmed Type Albuterol Inhaler [Ventolin Hfa 2 puff INHALATION RT-Q6H PRN 08/30/16 01/03/18 History Inhaler] Pnv No.95/Ferrous Fum/Folic AC 1 tab PO HS 08/17/17 01/03/18 History [ Multivitamin Tablet] Allergies Allergy/AdvReac Type Severity Reaction Status Date / Time No Known Allergies Allergy Verified 01/03/18 10:44 Exam Vital Signs Temp Pulse Resp BP 01/04/18 10:23 97.2 F L 77 16 117/77 Intake and Output 01/03/18 01/04/18 01/04/18 22:59 06:59 14:59 Other: Weight 115.666 kg In general, this is a well-developed, moderately obese white female in no acute distress. Her heart has a regular rhythm and rate without murmur. Her lungs are clear to auscultation bilaterally in all milner. Her abdomen is gravid, nondistended, has normal active bowel sounds, soft, nontender, and without any palpable masses aside from uterine fundus. Her extremities are without any cyanosis, clubbing, or significant edema and are nontender to palpation bilaterally. Digital cervical examination is deferred. Results Result Diagrams: 01/04/18 10:50 Assessment and Plan (1) Term Current Visit: Yes Status: Acute Code(s): Z34.80 - ENCOUNTER FOR SUPRVSN OF NORMAL , UNSP TRIMESTER SNOMED Code(s): 08542650 (2) Previous section Current Visit: Yes Status: Acute Code(s): Z98.891 - HISTORY OF UTERINE SCAR FROM PREVIOUS SURGERY SNOMED Code(s): 431804008 Plan: The patient is admitted for repeat low transverse section understanding the risks and complications.
[2018-01-04] MEDS ORDERED: ONDANSETRON 4 MG/2 ML VIAL ONE (12:03)
[2018-01-04] MEDS ORDERED: MORPHINE SULFATE (PF) 0.3 MG/0.3 ML SYR ONE (12:03)
[2018-01-04] MEDS ORDERED: WATER FOR INJECTION, STERILE 10 ML VIAL IV ONE (12:03)
[2018-01-04] MEDS ORDERED: NALBUPHINE 10 MG/ML VIAL (10ML MDV) ONE (12:03)
[2018-01-04] MEDS ORDERED: KETOROLAC 30 MG/ML 1 ML VIAL ONE (12:03)
[2018-01-04] MEDS ORDERED: OXYTOCIN 10 UNIT/ML 1 ML VIAL ONE (12:03)
[2018-01-04] MEDS ORDERED: ePHEDrine SULFATE/0.9% NACL/PF 50 MG/5 ML SYRINGE IV ONE (12:03)
[2018-01-04] MEDS ORDERED: ONDANSETRON 4 MG/2 ML VIAL IVP PRN (12:36)
[2018-01-04] MEDS ORDERED: MORPHINE SULFATE 4 MG/ML SYRINGE IVP PRN (12:36)
[2018-01-04] MEDS ORDERED: diphenhydrAMINE 50 MG/ML 1 ML VIAL IVP PRN ×3 (12:36→12:58)
[2018-01-04] MEDS ORDERED: NALOXONE 0.4 MG/ML 1 ML VIAL IV PRN ×2 (12:36→12:58)
[2018-01-04] MEDS ORDERED: diphenhydrAMINE 25 MG CAP PO PRN (12:58)
[2018-01-04] MEDS ORDERED: ZOLPIDEM 5 MG TAB PO PRN (12:58)
[2018-01-04] MEDS ORDERED: SIMETHICONE 80 MG CHEWABLE PO PRN (12:58)
[2018-01-04] MEDS ORDERED: diphenhydrAMINE 50 MG CAP PO PRN (12:58)
[2018-01-04] MEDS ORDERED: KETOROLAC 30 MG/ML 1 ML VIAL IVP PRN (12:58)
[2018-01-04] MEDS ORDERED: HYDROcodone/APAP 5-325MG 1 EACH TAB PO PRN (12:58)
[2018-01-04] MEDS ORDERED: HYDROcodone/APAP 7.5-325MG 1 EACH TAB PO PRN (12:58)
[2018-01-04] MEDS ORDERED: METOCLOPRAMIDE 5 MG/ML 2 ML VIAL IVP PRN (12:58)
[2018-01-04] MEDS ORDERED: OXYTOCIN 20 UNITS/1000 ML NS 1,000 ML IV SCH (13:00)
--- NOTE | 2018-01-04 13:10 | P.OP ---
Date of Procedure: 01/04/18 Preoperative Diagnosis: #1. 39-5/7 weeks, previous section, requesting repeat #2. Rh- Postoperative Diagnosis: Same Procedure(s) Performed: #1. Repeat low transverse section Anesthesia: spinal Surgeon: Benito Fregoso Internal Grinder #1: Amarilys Reyes Estimated Blood Loss (ml): 400 IV fluids (ml): 1,000 Urine output (ml): 300 Pathology: none sent Condition: stable Disposition: floor Operative Findings: The patient was taken the operating room where she was delivered of a viable 8 lbs. 1 oz. baby girl with Apgars of 9 at 1 minute and 9 at 5 minutes delivered in the right occiput anterior position. The placenta was delivered manually, intact, and grossly normal with a grossly normal three-vessel cord. The uterus , tubes, and ovaries were entirely normal to inspection. Description of Procedure: The patient was prepped and draped in usual fashion after spinal anesthesia was administered by the anesthesiologist. A Pfannenstiel incision was made through pre-existing scar and extended into the abdominal cavity with minimal difficulty. There was a mild to moderate amount of scarring at the level of the fascia and muscles. An Ryland wound retractor was placed and the bladder peritoneum noted to be distal to the site of incision. A 2 cm incision was made in the transverse plane of the lower uterine segment to enter the uterus at which time clear fluid was noted. The incision was extended in both directions using the bandage scissors. The head was delivered up and through the incision where the nose and mouth were thoroughly suctioned. Remainder of the infant was delivered onto the field where the cord was doubly clamped, cut, and the passed for resuscitative measures with weight and Apgars as noted above. cord blood was collected for evaluation for the necessity of RhoGAM prior to discharge. A segment of cord was doubly clamped, cut, and set aside should cord gases become necessary. The placenta was delivered manually and intact as noted above. The uterus was initially exteriorized and the interior cavity swept of any remaining placental or membranous fragments. The margins of the incision were grasped with Henry clamps. It was clear that the closure would be simpler with the uterus internal and it was replaced in the abdominal cavity. The incision was closed in 2 layers with the first layer being a running locking stitch of 0 chromic catgut followed by a running imbricating stitch of 0 chromic catgut each from margin to margin. Hemostasis appeared excellent. The uterus was re- exteriorized and the posterior cul-de-sac suctioned with a guard. Uterus was placed back into the abdomen and the gutters swept of any remaining blood, fluid , or clot. The incision was reexamined and noted to be entirely hemostatic. The parietal peritoneum was loosely reapproximated and layer of muscles made hemostatic with the Bovie. The fascia was closed with 2 running stitches of 0 Vicryl proceeding from the lateral margins to the midpoint. The subcutaneous tissues were irrigated, made hemostatic with the Bovie, and reapproximated with a running stitch of 30 plain catgut. The skin was reapproximated with a running subcuticular stitch of 4-0 Vicryl from margin to margin followed by half -inch Steri-Strips placed with Mastisol. Estimated blood loss for the case approximate 400 mL. There were no complications. All sponge, instrument, and needle counts were correct. The patient tolerated the procedure well and proceeded to the recovery room in stable condition. Both mother and infant are resting comfortably in recovery.
[2018-01-05] MEDS: SENNOSIDES-DOCUSATE SODIUM 1 EACH TAB PO SCH ×3 (00:52→19:55)
[2018-01-05 06:19] LABS: Basophils % (A) 0 %; Eosinophils # (A) 0.1 k/uL (0-0.7); Eosinophils % (A) 1 %; HCT 29.2 % (34.0-46.0); HGB 9.3 gm/dL (11.4-16.0); Hypochromasia Slight; Lymphocytes # (A) 1.7 k/uL (1.0-4.8); Lymphocytes % (A) 19 %; MCH 28.6 pg (25.0-35.0); MCHC 31.9 g/dL (31.0-37.0); MCV 89.4 fL (80.0-100.0); Mean Platelet Volume 7.6; Monocytes # (A) 0.5 k/uL (0-1.0); Monocytes % (A) 5 %; Neutrophils # (A) 6.6 k/uL (1.3-7.7); Neutrophils % (A) 73 %; Platelet Count 206 k/uL (150-450); RBC 3.27 m/uL (3.80-5.40); RDW 14.7 % (11.5-15.5)
--- NOTE | 2018-01-05 07:01 | P.PN ---
Progress Note - Text Date:01/05 Time:710am Patient is status post . Patient seen this morning with VAS score of 2. c/o of pruritus, c/o mild nausea/vomiting, comfortable and doing well.
--- NOTE | 2018-01-05 10:39 | P.PNOBGPC ---
Subjective - Subjective Patient reports: Reports appetite normal, Reports voiding normally, Reports pain well controlled, Reports ambulating normally : doing well Objective - Vital Signs Latest vital signs: Vital Signs Temp Pulse Resp BP Pulse Ox 01/05/18 08:00 98.3 F 63 18 106/53 01/05/18 05:00 98 01/05/18 04:00 98.2 F 77 16 108/68 98 01/05/18 01:00 98 01/05/18 00:00 98.0 F 85 16 110/65 01/04/18 23:00 18 01/04/18 21:00 16 100 01/04/18 20:00 97.7 F 81 16 107/63 100 01/04/18 17:36 97 01/04/18 17:00 15 01/04/18 16:00 97.5 F L 80 15 97/48 97 01/04/18 15:36 15 97 01/04/18 15:05 98.4 F 73 16 105/59 01/04/18 14:35 98.2 F 62 16 117/54 01/04/18 14:05 97.9 F 67 16 99/52 01/04/18 13:50 77 16 108/58 01/04/18 13:36 16 96 01/04/18 13:35 97.6 F 75 16 103/54 01/04/18 13:20 97.6 F 72 16 101/52 01/04/18 13:05 79 16 102/55 01/04/18 12:36 96.6 F L 88 16 107/54 95 Intake and Output 01/04/18 01/05/18 01/05/18 22:59 06:59 14:59 Output Total 900 400 150 Balance -900 -400 -150 Output: Urine 900 400 150 Uretheral (Ku) 200 400 Other: # Voids 0 1 - Exam Extremities: Present: normal Abdomen: Present: normal appearance, soft. Absent: distention, tenderness Incision: Present: normal, dry, intact Uterus: Present: normal, firm (The uterine fundus as tonic and nontender below the umbilicus.) - Labs Labs: Abnormal Lab Results - Last 24 Hours (Table) 01/05/18 Range/Units 05:44 RBC 3.27 L (3.80-5.40) m/uL Hgb 9.3 L D (11.4-16.0) gm/dL Hct 29.2 L (34.0-46.0) % Assessment and Plan (1) Term Current Visit: Yes Status: Acute Code(s): Z34.80 - ENCOUNTER FOR SUPRVSN OF NORMAL , UNSP TRIMESTER SNOMED Code(s): 40031819 (2) Previous section Current Visit: Yes Status: Acute Code(s): Z98.891 - HISTORY OF UTERINE SCAR FROM PREVIOUS SURGERY SNOMED Code(s): 767758832 (3) S/P section Current Visit: Yes Status: Acute Code(s): Z98.891 - HISTORY OF UTERINE SCAR FROM PREVIOUS SURGERY SNOMED Code(s): 733489108 Plan: Continue routine postoperative care. I do anticipate discharge home tomorrow pending complications. I have encouraged the patient to ambulate in the hallways at least 4 times daily.
[2018-01-05] MEDS: ACETAMINOPHEN TAB 325 MG TAB PO PRN ×2 (10:49→16:35)
[2018-01-05] MEDS: IBUPROFEN 600 MG TAB PO PRN ×2 (14:41→19:55)
[2018-01-05] MEDS: LACTATED RINGERS 1,000 ML IV SCH (23:34)
[2018-01-06] MEDS: ACETAMINOPHEN TAB 325 MG TAB PO PRN (03:28)
[2018-01-06] MEDS: IBUPROFEN 600 MG TAB PO PRN (07:36)
[2018-01-06] MEDS: SENNOSIDES-DOCUSATE SODIUM 1 EACH TAB PO SCH (07:37)
[2018-01-06 07:42] VITALS: BP 96/56; PULSE 54; RESP 16; TEMP 98.4
--- NOTE | 2018-01-06 10:15 | P.DS ---
Providers Date of admission: 01/04/18 10:21 Expected date of discharge: 01/06/18 Attending physician: Benito Fregoso - Discharge Diagnosis(es) (1) Term Current Visit: Yes Status: Acute (2) Previous section Current Visit: Yes Status: Acute (3) S/P section Current Visit: Yes Status: Acute Hospital Course: The patient is a 22-year-old 3 para 1011 admitted at 39-5/7 weeks by good dating parameters. She is admitted for repeat low transverse section with a history of previous section declining vaginal trial of labor. Her was essentially incompetent of though she is Rh- and received RhoGAM. Group B strep status is negative. On labor and delivery, she was taken to the operating room where she underwent repeat low transverse section and uncomplicated fashion and was delivered of a viable 8 lbs. 1 oz. baby girl with Apgars of 9 at 1 minute and 9 at 5 minutes. Her postoperative course has been unremarkable with vital signs remaining stable and her temperature has been afebrile throughout. She was deemed stable for discharge on postoperative day #2 and was discharged home to follow-up in the office in 2 weeks for an incision check and 6 weeks routinely. Discharge instructions included calling for any significantly increased bleeding or foul-smelling lochia, significantly increased fever or abdominal pain, perineal complaints, breast complaints, incisional complaints, or anything else that concerned her. She was additionally instructed to have nothing in the vagina for at least 6 weeks time to include intercourse and to abstain from any heavy lifting over the same period of time. She was last instructed to do no driving until off of all pain medications or 2 weeks' time, whichever came first. She understood her instructions and agrees to follow up as noted above. Discharge medications included [id number] analgesic pain medications as well as a prescription for Tylenol 3, 1-2 by mouth every 6 hours when necessary pain, #20 dispensed with no refills. Maternal blood type is A- and cord blood was sent for evaluation for the necessity of RhoGAM prior to discharge. Rubella status is immune. Discharge hemoglobin and hematocrit were 9.3 and 29.2 respectively. As result, she was instructed to use iron sulfate for the next month on a roughly daily basis. Procedures: #1. Repeat low transverse section Patient Condition at Discharge: Good Plan - Discharge Summary Discharge Rx Participant: Yes New Discharge Prescriptions: No Action Albuterol Inhaler [Ventolin Hfa Inhaler] 2 puff INHALATION RT-Q6H PRN PRN Reason: Shortness Of Breath Pnv No.95/Ferrous Fum/Folic AC [ Multivitamin Tablet] 1 tab PO HS Discharge Medication List Albuterol Inhaler [Ventolin Hfa Inhaler] 2 puff INHALATION RT-Q6H PRN 08/30/16 [ History] Pnv No.95/Ferrous Fum/Folic AC [ Multivitamin Tablet] 1 tab PO HS [History] Follow up Appointment(s)/Referral(s): Benito Fregoso MD [STAFF PHYSICIAN] - 2 Weeks Discharge Disposition: HOME SELF-CARE
== END 2018-01-06 10:42 | disposition home or self-care (01) | DRG 765 ==
LOC: 4FBP 10:21
PROVIDERS: ADMIT Obstetrics & Gynecology; ATTEND Obstetrics & Gynecology
PROC: 10D00Z1 Extraction of Products of Conception, Low, Open Approach (ICD-10-PCS; principal; 2018-01-04 12:00)
DX: O34.211 Maternal care for low transverse scar from previous cesarean delivery (principal); Z68.41 Body mass index [BMI] 40.0-44.9, adult; Z37.0 Single live birth; Z3A.39 39 weeks gestation of pregnancy; Z86.32 Personal history of gestational diabetes; O99.334 Smoking (tobacco) complicating childbirth; F17.200 Nicotine dependence, unspecified, uncomplicated; J45.909 Unspecified asthma, uncomplicated; O99.52 Diseases of the respiratory system complicating childbirth; Z79.899 Other long term (current) drug therapy; O99.214 Obesity complicating childbirth; E66.9 Obesity, unspecified; L29.9 Pruritus, unspecified
CPT/HCPCS: 85025; 86850; 86900; 86901

== ENCOUNTER → 2018-06-07 | Outpatient (CLI) | payer OTHER ==
--- NOTE | 2018-06-07 11:10 | MR ---
EXAMINATION TYPE: MR brain wo con DATE OF EXAM: 06/07/2018 COMPARISON: NONE HISTORY: Headache T1-weighted sagittal, T2, FLAIR, and diffusion axial, and T2 coronal coronal views of the brain are s ubmitted. There is no evidence of acute ischemia. The ventricles, basal cisterns, and sulci overlying the conv exities are consistent with the patient's age. There is no mass effect. Cerebellar tonsils low-lying in position measuring approximately 1 to 2 mm below foramen magnum.. Estefania la turcica has a normal appearance. No cerebellopontine angle mass. 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 Trace jemma unt of fluid surrounding the nerves is can occasionally be seen with benign increased intracranial hy pertension correlate clinically. IMPRESSION: 1. Low-lying cerebellar tonsils measuring approximately 1 to 2 mm below the foramen magnum. Correlate clinically. No tonsillar beaking. 2. Trace amount of fluid surrounding the optic nerves is. Correlate clinically to exclude papilledema .
== END ==
LOC: RADMRIMAIN 10:02
PROVIDERS: ATTEND Psychiatry & Neurology Neurology
DX: G93.89 Other specified disorders of brain (principal)
CPT/HCPCS: 70551

== ENCOUNTER 2020-02-03 16:44 | Emergency (ER) | payer OTHER ==
[2020-02-03 16:52] VITALS: BP 152/85; PULSE 84; RESP 18; TEMP 98.5
== END 2020-02-03 18:10 ==
LOC: EC 16:44
DX: L02.31 Cutaneous abscess of buttock (principal); Z53.21 Procedure and treatment not carried out due to patient leaving prior to being seen by health care provider
CPT/HCPCS: 99499

== ENCOUNTER → 2020-09-24 | Outpatient (CLI) | payer OTHER | END | disposition home or self-care (01) | LOC: LABWHC1 14:50 | PROVIDERS: ATTEND Family Medicine | DX: Z20.822 Contact with and (suspected) exposure to COVID-19 (principal); R43.9 Unspecified disturbances of smell and taste | CPT/HCPCS: U0003; C9803; U0005 ==